=== PATIENT | female | born 1980 | race African-American/Black ===

== ENCOUNTER 2016-11-24 16:12 | Emergency (ER) | payer OTHER ==
[2016-11-24 16:29] VITALS: BP 118/69; PULSE 57; TEMP 98.4; BMI 35.3
--- NOTE | 2016-11-24 17:44 | PDOC ---
[id number] No Limitations - History of Present Illness Initial Comments: 11/24/16 18:15 The patient is a 36 year old female, , with significant past medical history of asthma who presents to the ED with back pain. Patient notes that she has been experiencing the following back pain for 3 years that she developed shortly after the of her 3rd child. She notes that the back pain radiates to the back of her legs and she also reports numbness. She states that she recently had X RAYs done that were normal. She notes that she used to take Neparcin that helped her for her back pain but reports no alleviation with Flexeril. She reports mild cp and SOB. She denies nausea, vomiting, diarrhea, constipation or abdominal pain. She denies dysuria, frequency, hesitancy or hematuria. She denies any LOC, recent trauma, or neck pain. <Karyna Doe - Last Filed: 11/24/16 19:08> <Damián Huertas - Last Filed: 12/19/16 09:54> - General Chief Complaint: Back Pain Stated Complaint: LOWER BACK PAIN Time Seen by Provider: 11/24/16 16:50 Past History <Karyna Doe - Last Filed: 11/24/16 19:08> - Past Medical History Asthma: Yes Cancer: No Cardiac Disorders: Yes (heart murmur) Diabetes: No HTN: No Seizures: No Thyroid Disease: No - Reproductive History (#): 4 Para: 3 - Psycho/Social/Smoking Cessation Hx Anxiety: No Suicidal Ideation: No Smoking Status: No Smoking History: Never smoked Have you smoked in the past 12 months: No Number of Cigarettes Smoked Daily: 0 Hx Alcohol Use: Yes (OCCASIONALLY) Drug/Substance Use Hx: No Substance Use Type: None Hx Substance Use Treatment: No <Damián Huertas - Last Filed: 12/19/16 09:54> - Past Medical History Allergies/Adverse Reactions: Allergies Allergy/AdvReac Type Severity Reaction Status Date / Time No Known Allergies Allergy Verified 11/24/16 16:29 Home Medications: Ambulatory Orders Ondansetron [Zofran *Odt*] 4 mg SL TID #30 od.tablet 01/10/16 Cyclobenzaprine HCl [Flexeril -] 10 mg PO TID #21 tablet 11/24/16 Diclofenac Sodium/Misoprostol [Arthrotec 75 mg-200 Mcg Tab] 1 each PO BID #20 tablet. 11/24/16 Pseudoephedrine HCl [Sudafed 12 Hour] 120 mg PO BID #24 tablet.er 12/15/16 Review of Systems - Review of Systems Able to Perform ROS?: Yes Comments:: 11/24/16 18:16 GENERAL/CONSTITUTIONAL: No fever or chills. No weakness. HEAD, EYES, EARS, NOSE AND THROAT: No change in vision. No ear pain or discharge. No sore throat. CARDIOVASCULAR: No chest pain or shortness of breath. RESPIRATORY: No cough, wheezing, or hemoptysis. GASTROINTESTINAL: No nausea, vomiting, diarrhea or constipation. GENITOURINARY: No dysuria, frequency, or change in urination. MUSCULOSKELETAL: +back pain. No joint or muscle swelling or pain. No neck. SKIN: No rash NEUROLOGIC: No headache, vertigo, loss of consciousness, or change in strength/ sensation. ENDOCRINE: No increased thirst. No abnormal weight change. HEMATOLOGIC/LYMPHATIC: No anemia, easy bleeding, or history of blood clots. ALLERGIC/IMMUNOLOGIC: No hives or skin allergy. <Karyna Doe - Last Filed: 11/24/16 19:08> *Physical Exam - Vital Signs Last Vital Signs Temp Pulse Resp BP Pulse Ox 98.4 F 57 L 16 118/69 97 11/24/16 16:26 11/24/16 16:26 11/24/16 16:26 11/24/16 16:26 11/24/16 16:26 - Physical Exam Comments: 11/24/16 18:16 GENERAL: Awake, alert, and fully oriented, in no acute distress HEAD: No signs of trauma EYES: PERRLA, EOMI, sclera anicteric, conjunctiva clear ENT: Auricles normal inspection, hearing grossly normal, nares patent, oropharynx clear without exudates. Moist mucosa NECK: Normal ROM, supple, no lymphadenopathy, JVD, or masses LUNGS: Breath sounds equal, clear to auscultation bilaterally. No wheezes, and no crackles HEART: Regular rate and rhythm, normal S1 and S2, no murmurs, rubs or gallops ABDOMEN: Soft, nontender, normoactive bowel sounds. No guarding, no rebound. No masses EXTREMITIES: Normal range of motion, no edema. No clubbing or cyanosis. No cords, erythema, or tenderness NEUROLOGICAL: Cranial nerves II through XII grossly intact. Normal speech, normal gait SKIN: Warm, Dry, normal turgor, no rashes or lesions noted. <Karyna Doe - Last Filed: 11/24/16 19:08> - Vital Signs Last Vital Signs Temp Pulse Resp BP Pulse Ox 98.4 F 57 L 16 118/69 97 11/24/16 16:26 11/24/16 16:26 11/24/16 16:26 11/24/16 16:26 11/24/16 16:26 <Damián Huertas - Last Filed: 12/19/16 09:54> ED Treatment Course - Medications Given in the ED: ED Medications Discontinued Medications Generic Name Dose Route Start Last Admin Trade Name Freq PRN Reason Stop Dose Admin Ibuprofen 800 mg 11/24/16 17:58 11/24/16 18:13 Motrin - PO 11/24/16 17:59 800 mg ONCE ONE Administration Oxycodone/Acetaminophen 1 combo 11/24/16 17:58 11/24/16 18:13 Percocet 5/325 - PO 11/24/16 17:59 1 combo ONCE ONE Administration <Karyna Doe - Last Filed: 11/24/16 19:08> Medical Decision Making - Medical Decision Making 11/24/16 18:15 The patient is a 36 year old female, , with significant past medical history of asthma who presents to the ED with back pain. Will order labs and imagining. Patient will be reassessed after the results are back. 11/24/16 19:08 Since my shift is over, I endorse continuation of care to Dr. Hoff the overnight attending. <Karyna Doe - Last Filed: 11/24/16 19:08> *DC/Admit/Observation/Transfer <Karyna Doe - Last Filed: 11/24/16 19:08> - Attestations Physician Attestion: 11/24/16 17:44 I, Dr. Damián Huertas, attest that this document has been prepared under my direction and personally reviewed by me in its entirety. I further attest, that it accurately reflects all work, treatment, procedures and medical decision -making performed by me. <KiyaDamián - Last Filed: 12/19/16 09:54> Diagnosis at time of Disposition: Radiculopathy of lumbar region - Discharge Dispostion Disposition: HOME Condition at time of disposition: Stable - Prescriptions Prescriptions: Diclofenac Sodium/Misoprostol [Arthrotec 75 mg-200 Mcg Tab] 1 each PO BID #20 tablet. Cyclobenzaprine HCl [Flexeril -] 10 mg PO TID #21 tablet - Referrals Referrals: Cuate Andrade [Primary Care Provider] - Call tomorrow - Patient Instructions Additional Instructions: TAKE MEDICATIONS PRESCRIBED DO NOT TAKE ANY OTHER PAIN MEDICATION WITHOUT YOUR DOCTOR'S APPROVAL AVOID PROLONG PERIODS OF TIME IN SAME POSITION DO NOT LIFT WEIGHTS ICE OR HEAT TO AREA (WHATEVER WORKS BETTER FOR YOU) CALL YOUR DOCTOR TO START PHYSICAL THERAPY SARA LAY DOWN ON EITHER SIDE, KNEES BENT, STRAIGHT SPINE, CUSHION BETWEEN YOUR KNEES RETURN IF WORSENING PAIN OR NEW SYMPTOMS LIKE INABILITY TO URINATE OR HOLD YOUR URINE
[2016-11-24] MEDS ORDERED: IBUPROFEN 400 MG TABLET (FP) PO ONE ×2 (17:58→18:07)
[2016-11-24] MEDS ORDERED: OXYCODONE/APAP 5/325MG COMBO TABLET PO ONE (17:58)
[2016-11-24] MEDS ORDERED: OXYCODONE/APAP 5/325MG COMBO TABLET ONE (18:07)
[2016-11-24 18:44] LABS: URINE APPEARANCE CLEAR; URINE BILIRUBIN NEGATIVE (NEGATIVE); URINE COLOR YELLOW; URINE GLUCOSE (UA) NEGATIVE (NEGATIVE); URINE KETONE NEGATIVE (NEGATIVE); URINE LEUK ESTERASE NEGATIVE (NEGATIVE); URINE NITRITE NEGATIVE (NEGATIVE); URINE PROTEIN NEGATIVE (NEGATIVE); URINE UROBILINOGEN NEGATIVE E.U./dl (0.2-1.0)
[2016-11-24 18:51] LABS: URINE BLOOD 1+ (NEGATIVE)
[2016-11-24 19:25] LABS: URINE MUCUS RARE; URINE RBC 3 /hpf (0-3); URINE WBC 1 /hpf (3-5)
[2016-11-24] MEDS ORDERED: CYCLOBENZAPRINE HCL 10 MG TABLET (FP) PO ONE (20:21)
[2016-11-24] MEDS ORDERED: CYCLOBENZAPRINE HCL 10 MG TABLET (FP) ONE (20:23)
--- NOTE | 2016-11-24 20:25 | PDOC ---
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/PT <Chris Zamudio - Last Filed: 11/24/16 20:22> - Vital Signs Last Vital Signs Temp Pulse Resp BP Pulse Ox 98.4 F 57 L 16 118/69 97 11/24/16 16:26 11/24/16 16:26 11/24/16 16:26 11/24/16 16:26 11/24/16 16:26 <Faustino Macias - Last Filed: 11/24/16 21:34> ED Treatment Course - ADDITIONAL ORDERS Additional order review: Laboratory Results 11/24/16 17:58 Urine Color Yellow Urine Appearance Clear Urine pH 5.0 Ur Specific Rochert 1.026 Urine Protein Negative Urine Glucose (UA) Negative Urine Ketones Negative Urine Blood 1+ H Urine Nitrite Negative Urine Bilirubin Negative Urine Urobilinogen Negative Ur Leukocyte Esterase Negative Urine RBC 3 Urine WBC 1 Ur Epithelial Cells Rare Urine Mucus Rare Urine HCG, Qual Negative - Medications Given in the ED: ED Medications Discontinued Medications Generic Name Dose Route Start Last Admin Trade Name Carrollq PRN Reason Stop Dose Admin Ibuprofen 800 mg 11/24/16 17:58 11/24/16 18:13 Motrin - PO 11/24/16 17:59 800 mg ONCE ONE Administration Oxycodone/Acetaminophen 1 combo 11/24/16 17:58 11/24/16 18:13 Percocet 5/325 - PO 11/24/16 17:59 1 combo ONCE ONE Administration <Chris Zamudio - Last Filed: 11/24/16 20:22> - ADDITIONAL ORDERS Additional order review: Laboratory Results 11/24/16 17:58 Urine Color Yellow Urine Appearance Clear Urine pH 5.0 Ur Specific Rochert 1.026 Urine Protein Negative Urine Glucose (UA) Negative Urine Ketones Negative Urine Blood 1+ H Urine Nitrite Negative Urine Bilirubin Negative Urine Urobilinogen Negative Ur Leukocyte Esterase Negative Urine RBC 3 Urine WBC 1 Ur Epithelial Cells Rare Urine Mucus Rare Urine HCG, Qual Negative - RADIOLOGY Radiograph Interpretation: 11/24/16 21:19 CT LUMBAR SPINE Impression: The lumbar vertebral bodies are well aligned. The transverse and spinous processes are intact. No focal extruded disc herniation suggested on noncontrast images. Bilateral facet joints are intact and normally aligned. No evidence of spondylolysis or spondylolisthesis. - Medications Given in the ED: ED Medications Discontinued Medications Generic Name Dose Route Start Last Admin Trade Name Edilson PRN Reason Stop Dose Admin Cyclobenzaprine HCl 10 mg 11/24/16 20:21 11/24/16 20:27 Flexeril - PO 11/24/16 20:22 10 mg ONCE ONE Administration Ibuprofen 800 mg 11/24/16 17:58 11/24/16 18:13 Motrin - PO 11/24/16 17:59 800 mg ONCE ONE Administration Oxycodone/Acetaminophen 1 combo 11/24/16 17:58 11/24/16 18:13 Percocet 5/325 - PO 11/24/16 17:59 1 combo ONCE ONE Administration <Faustino Macias - Last Filed: 11/24/16 21:34> *DC/Admit/Observation/Transfer <Chris Zamudio - Last Filed: 11/24/16 20:22> <Faustino Macias - Last Filed: 11/24/16 21:34> Diagnosis at time of Disposition: Radiculopathy of lumbar region - Discharge Dispostion Disposition: HOME Condition at time of disposition: Stable - Prescriptions Prescriptions: Diclofenac Sodium/Misoprostol [Arthrotec 75 mg-200 Mcg Tab] 1 each PO BID #20 tablet.dr Ryanbenzaprine HCl [Flexeril -] 10 mg PO TID #21 tablet - Referrals Referrals: Cuate Andrade [Primary Care Provider] - Call tomorrow - Patient Instructions Additional Instructions: TAKE MEDICATIONS PRESCRIBED DO NOT TAKE ANY OTHER PAIN MEDICATION WITHOUT YOUR DOCTOR'S APPROVAL AVOID PROLONG PERIODS OF TIME IN SAME POSITION DO NOT LIFT WEIGHTS ICE OR HEAT TO AREA (WHATEVER WORKS BETTER FOR YOU) CALL YOUR DOCTOR TO START PHYSICAL THERAPY SARA LAY DOWN ON EITHER SIDE, KNEES BENT, STRAIGHT SPINE, CUSHION BETWEEN YOUR KNEES RETURN IF WORSENING PAIN OR NEW SYMPTOMS LIKE INABILITY TO URINATE OR HOLD YOUR URINE - Post Discharge Activity
== END 2016-11-24 21:36 | disposition home or self-care (01) ==
LOC: JER 16:12 → JERFT 16:12 → JER 21:36
DX: M54.16 Radiculopathy, lumbar region (principal); R01.1 Cardiac murmur, unspecified; J45.909 Unspecified asthma, uncomplicated
CPT/HCPCS: 72131-TC; 81003; 81015; 84703; 87086; 87186; 99281-25

== ENCOUNTER 2016-12-15 15:47 | Emergency (ER) | payer OTHER ==
[2016-12-15 15:58] VITALS: BP 118/77; PULSE 89; TEMP 98.3; BMI 36.0
--- NOTE | 2016-12-15 16:09 | PDOC ---
History of Present Illness <Randall Samuels - Last Filed: 12/15/16 17:35> - General History Source: Patient, Old Records Exam Limitations: No Limitations - History of Present Illness Initial Comments: 12/15/16 17:49 The patient is a 36 year old female, with a significant past medical history of asthma and chronic lower back pain, who presents to the emergency department with cold-like symptoms including a nonproductive cough and chest congestion. The patient additionally reports a subjective fever last night. The patient denies shortness of breath or chest pain. The patient denies nausea, vomiting, diarrhea or any dysuria. 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 The patient denies any leg swelling, hemoptysis, exogenous steroid/ hormone use. Allergies: None reported. Past Surgical History: . Social History: Non smoker. Denies alcohol or drug use. PCP: Dr. Cuate Andrade ([facility]) <Stephanie Ragland - Last Filed: 12/15/16 17:50> - General Chief Complaint: Cold Symptoms Stated Complaint: COUGH Time Seen by Provider: 12/15/16 15:52 Past History - Past Medical History Asthma: Yes (CHILDHOOD) Cancer: No Cardiac Disorders: Yes (heart murmur) Diabetes: No HTN: No Seizures: No Thyroid Disease: No Other medical history: CHRONIC BACK PAIN - Reproductive History (#): 4 Para: 3 - Psycho/Social/Smoking Cessation Hx Anxiety: No Suicidal Ideation: No Smoking Status: No Smoking History: Never smoked Have you smoked in the past 12 months: No Number of Cigarettes Smoked Daily: 0 Hx Alcohol Use: Yes (OCCASIONALLY) Drug/Substance Use Hx: No Substance Use Type: None Hx Substance Use Treatment: No <Randall Samuels - Last Filed: 12/15/16 17:35> <Stephanie Ragland - Last Filed: 12/15/16 17:50> - Past Medical History Allergies/Adverse Reactions: Allergies Allergy/AdvReac Type Severity Reaction Status Date / Time No Known Allergies Allergy Verified 11/24/16 16:29 Home Medications: Ambulatory Orders Ondansetron [Zofran *Odt*] 4 mg SL TID #30 od.tablet 01/10/16 Cyclobenzaprine HCl [Flexeril -] 10 mg PO TID #21 tablet 11/24/16 Diclofenac Sodium/Misoprostol [Arthrotec 75 mg-200 Mcg Tab] 1 each PO BID #20 tablet. 11/24/16 Pseudoephedrine HCl [Sudafed 12 Hour] 120 mg PO BID #24 tablet.er 12/15/16 Review of Systems - Review of Systems Able to Perform ROS?: Yes Comments:: 12/15/16 17:49 CONSTITUTIONAL: Reported:+Subjective fever. No reported: Chills, Diaphoresis, Generalized Weakness, Malaise, Loss of Appetite HEENT: No reported: Rhinorrhea, Nasal Congestion, Throat Pain, Throat Swelling, Difficulty Swallowing, Mouth Swelling, Ear Pain, Eye Pain, Visual Changes CARDIOVASCULAR: No reported: Chest Pain, Syncope, Palpitations, Irregular Heart Rate, Lightheadedness, Peripheral Edema RESPIRATORY: Reported: +Cough, Chest Congestion. No reported: Shortness of Breath, SOB with Exertion, Orthopnea, Wheezing, Stridor, Hemoptysis GASTROINTESTINAL: No reported: Abdominal pain, Abdominal Distension, Nausea, Vomiting, Diarrhea, Constipation, Melena, Hematochezia GENITOURINARY: No reported: Dysuria, Frequency, Urgency, Hesitancy, Flank Pain, Genital Pain MUSCULOSKELETAL: No reported: Myalgia, Arthralgia, Joint Swelling, Back pain, Neck Pain SKIN: No reported: Rash, Itching, Pallor HEMATOLOGIC/IMMUNOLOGIC: No reported: Easy Bleeding, Easy Bruising, Lymphadenopathy, Frequent infections ENDOCRINE: No reported: Unexplained Weight Gain, Unexplained Weight Loss, Heat Intolerance , Cold Intolerance NEUROLOGIC: No reported: Headache, Focal Weakness, Paresthesias, Vertigo, Lightheadedness, Unsteady Gait, Seizure, Mental Status Changes, Incontinence PSYCHIATRIC: No reported: Anxiety, Depression <JuneauStephanie Bone - Last Filed: 12/15/16 17:50> *Physical Exam - Vital Signs Last Vital Signs Temp Pulse Resp BP Pulse Ox 98.3 F 89 16 118/77 100 12/15/16 15:54 12/15/16 15:54 12/15/16 15:54 12/15/16 15:54 12/15/16 15:54 <Randall Samuels - Last Filed: 12/15/16 17:35> - Vital Signs Last Vital Signs Temp Pulse Resp BP Pulse Ox 98.3 F 89 16 118/77 100 12/15/16 15:54 12/15/16 15:54 12/15/16 15:54 12/15/16 15:54 12/15/16 15:54 - Physical Exam Comments: 12/15/16 17:50 GENERAL: The patient is awake, alert, and fully oriented, nontoxic - in no acute distress. HEAD: Normocephalic, atraumatic. EYES: Extraocular movements intact, sclera anicteric, conjunctiva clear. ENT: Normal voice, moist mucous membranes. NECK: Normal range of motion, supple. LUNGS: Breath sounds equal, clear to auscultation bilaterally. No wheezes, no rhonchi, no rales. HEART: Regular rate and rhythm, without murmur, rub or gallop. ABDOMEN: Soft, nontender, normoactive bowel sounds. No guarding, no rebound. No CVA tenderness EXTREMITIES: Normal range of motion, no edema. No cords, erythema, or tenderness. Negative Homans sign. NEUROLOGICAL: No facial asymmetry. Normal speech. PSYCH: Normal mood, normal affect. SKIN: Warm, dry, normal turgor. <Stephanie Ragland - Last Filed: 12/15/16 17:50> ED Treatment Course - RADIOLOGY Radiology Studies Ordered: Category Date Time Status CHEST PA & LAT [RAD] Stat Radiology 12/15/16 16:07 Ordered <Randall Samuels - Last Filed: 12/15/16 17:35> Medical Decision Making - Medical Decision Making 12/15/16 16:07 36y F hx of asthma presents with coughing x 1 month, with subjective fever last night, cough is nonproductive but pt notes that at night she feels very congested and feels like may be she has a post nasal drip although she denies nasal congestion. there is no associated hemoptysis, leg swelling. pts exam is normal. will obtain cxr to r/o pna suspect possible viral syndrome PERC negative if xray neg will treat pt with some sudafed for sypmtomatic relief. A portion of this note was documented by scribe services under my direction. I have reviewed the details of the note, within reason, and agree with the documentation with the following case summary and management plan written by me 12/15/16 17:35 cxr negative for infiltrate will dc th etp with sudafed and pmd fu return precautions were discussed I discussed the physical exam findings, ancillary test results and final diagnoses with the patient. I answered all of the patient's questions. The patient was satisfied with the care received and felt comfortable with the discharge plan and treatment plan. The patient will call their primary care physician within 24 hours to arrange follow-up and will return to the Emergency Department with any new, persistent or worsening symptoms. <Randall Samuels - Last Filed: 12/15/16 17:35> *DC/Admit/Observation/Transfer - Discharge Dispostion Admit: No <Randall Samuels - Last Filed: 12/15/16 17:35> - Attestations Scribe Attestion: 12/15/16 16:12 Documentation prepared by Stephanie Ragland, acting as medical technologist for Randall Samuels MD. <Stephanie Ragland - Last Filed: 12/15/16 17:50> Diagnosis at time of Disposition: Cough - Discharge Dispostion Disposition: HOME Condition at time of disposition: Stable - Prescriptions Prescriptions: Pseudoephedrine HCl [Sudafed 12 Hour] 120 mg PO BID #24 tablet.er - Referrals Referrals: Cuate Andrade [Primary Care Provider] - - Patient Instructions Printed Discharge Instructions: DI for Common Cold Additional Instructions: Return to the emergency department immediately with ANY new, persistent or worsening symptoms. You MUST call and follow up with your doctor tomorrow for further evaluation of your symptoms. Results were discussed with you. Please make sure your doctor reviews the results of your emergency evaluation. If you had any xrays during your visit, it was read preliminarily by myself, a Radiologist will review it and if there are any additional findings we will call you.
== END 2016-12-15 17:45 | disposition home or self-care (01) ==
LOC: FER 15:47
DX: R05 Cough (principal); J45.909 Unspecified asthma, uncomplicated; G89.29 Other chronic pain
CPT/HCPCS: 71020-TC; 99281-25

== ENCOUNTER 2017-04-19 00:26 | Emergency (ER) | payer OTHER ==
--- NOTE | 2017-04-19 00:54 | PDOC ---
History of Present Illness - General History Source: Patient Exam Limitations: No Limitations - History of Present Illness Initial Comments: 04/19/17 02:23 36 yo F with no pmhx here with c/o epigastric pain n/v that started yesterday evening. pt states at lots of sea food yesterday, unsure if got food poisoning. no f/c today had several episodes of nonbloody, nonbilious emesis. also severe loose watery stools. no mod factors. no sick contacts. all nonbloody. pain sharp and buring. no radiation. no h/o similar episodes in the past. <Veronika Viveros - Last Filed: 04/19/17 03:08> <Rozina Lewis - Last Filed: 04/20/17 05:02> - General Stated Complaint: ABDOMINAL PAIN Time Seen by Provider: 04/19/17 00:36 Past History <Veronika Viveros - Last Filed: 04/19/17 03:08> - Past Medical History Asthma: Yes (CHILDHOOD) Cancer: No Cardiac Disorders: Yes (heart murmur) Diabetes: No HTN: No Seizures: No Thyroid Disease: No - Reproductive History (#): 4 Para: 3 - Psycho/Social/Smoking Cessation Hx Anxiety: No Suicidal Ideation: No Smoking Status: No Smoking History: Never smoked Have you smoked in the past 12 months: No Number of Cigarettes Smoked Daily: 0 Hx Alcohol Use: Yes (OCCASIONALLY) Drug/Substance Use Hx: No Substance Use Type: None Hx Substance Use Treatment: No <Rozina Lewis - Last Filed: 04/20/17 05:02> - Past Medical History Allergies/Adverse Reactions: Allergies Allergy/AdvReac Type Severity Reaction Status Date / Time No Known Allergies Allergy Verified 04/19/17 00:55 Home Medications: Ambulatory Orders Ondansetron [Zofran *Odt*] 4 mg SL TID #30 od.tablet 01/10/16 Cyclobenzaprine HCl [Flexeril -] 10 mg PO TID #21 tablet 11/24/16 Diclofenac Sodium/Misoprostol [Arthrotec 75 mg-200 Mcg Tab] 1 each PO BID #20 tablet. 11/24/16 Pseudoephedrine HCl [Sudafed 12 Hour] 120 mg PO BID #24 tablet.er 12/15/16 Review of Systems - Review of Systems Constitutional: No: Chills, Diaphoresis Respiratory: No: Cough, Orthopnea Cardiac (ROS): No: Chest Pain ABD/GI: Yes: Abd. Pain w/ defecation, Diarrhea, Nausea, Vomiting : No: Burning, Dysuria Musculoskeletal: No: Back Pain Neurological: No: Headache All Other Systems: Reviewed and Negative <Veronika Viveros - Last Filed: 04/19/17 03:08> *Physical Exam - Vital Signs Last Vital Signs Temp Pulse Resp BP Pulse Ox 98.0 F 86 18 125/70 100 04/19/17 00:57 04/19/17 00:57 04/19/17 00:57 04/19/17 00:57 04/19/17 00:57 - Physical Exam General Appearance: Yes: Nourished HEENT: positive: Normal ENT Inspection Neck: positive: Tender, Trachea midline Respiratory/Chest: positive: Lungs Clear, Normal Breath Sounds. negative: Chest Tender Cardiovascular: positive: Regular Rhythm, Regular Rate, S1, S2. negative: Edema , JVD Gastrointestinal/Abdominal: positive: Normal Bowel Sounds, Tender (epigastric ttp. no rebound no guarding. ) Musculoskeletal: positive: Normal Inspection. negative: CVA Tenderness Extremity: positive: Normal Capillary Refill, Normal Inspection Integumentary: positive: Normal Color, Warm Neurologic: positive: Fully Oriented, Alert <Veronika Viveros - Last Filed: 04/19/17 03:08> Procedures - Bedside Ultrasound Bedside Ultrasound: Gallbladder Other: see MDM for impression <Veronika Viveros - Last Filed: 04/19/17 03:08> ED Treatment Course - LABORATORY CBC & Chemistry Diagram: 04/19/17 02:23 04/19/17 02:23 <Veronika Viveros - Last Filed: 04/19/17 03:08> - LABORATORY CBC & Chemistry Diagram: 04/19/17 02:23 04/19/17 04:21 <Rozina Lewis - Last Filed: 04/20/17 05:02> Medical Decision Making - Medical Decision Making 04/19/17 02:25 36 yo F with no pmhx here with c/o severe epigastric pain n/v/d after seafood yesterday. differnetial: gastritisi cholecystisi cholelithiasis. pancreatitis. food poisonoing plan antacid, antemetics, ivf. reassess. hcg 04/19/17 03:08 focused bedside ultrasound gallbladder performed. scanned in two planes. no stones no dilation, normal CBD of 3.9mm, neg sonographic riojas's, nomral wall . no wall edema or thickening, wall measuried 1.2mm impression : normal gallbladder <Veronika Viveros - Last Filed: 04/19/17 03:08> - Medical Decision Making 04/20/17 04:58 I received patient on signout. She comes with food poisoning from raw seafood that she had eaten earlier. Pt's labs are essentially normal. T bili and LFTs are normal, pt feels better with hydration and medication and she understands that she should return if she has continued fever or nausea and vomiting, and that she ought to follow with PMD otherwise. <Rozina Lewis - Last Filed: 04/20/17 05:02> *DC/Admit/Observation/Transfer <Veronika Viveros - Last Filed: 04/19/17 03:08> - Discharge Dispostion Admit: No <Rozina Lewis - Last Filed: 04/20/17 05:02> Diagnosis at time of Disposition: Food poisoning - Discharge Dispostion Disposition: HOME Condition at time of disposition: Improved - Referrals Referrals: Cuate Andrade [Primary Care Provider] - - Patient Instructions Printed Discharge Instructions: Food Poisoning
[2017-04-19 01:01] VITALS: BP 125/70; PULSE 86; TEMP 98; BMI 35.3
[2017-04-19] MEDS ORDERED: MAG HYDROX/AL HYDROX/SIMETH 355 ML ORAL.SUSP PO ONE (02:06)
[2017-04-19] MEDS ORDERED: PANTOPRAZOLE 40 MG TABLET (FP) PO ONE (02:06)
[2017-04-19] MEDS ORDERED: ONDANSETRON 4 MG/2 ML VIAL IVPUSH ONE (02:22)
[2017-04-19] MEDS ORDERED: SODIUM CHLORIDE 0.9% 1000 ML INFUS.BAG IV ONE (02:22)
[2017-04-19] MEDS ORDERED: FAMOTIDINE 20 MG/50 ML IVPB 50 ML IVPB ONE ×2 (02:22→02:51)
[2017-04-19 02:42] LABS: BASOPHIL 0.2 % (0-2.0); EOSINOPHIL 0.1 % (0-4.5); MCH 27.8 pg (25.7-33.7); MEAN CELL VOLUME 84.3 fl (80-96); MEAN PLT VOLUME 8.6 fl (7.5-11.1); NEUTROPHILS 81.7 % (42.8-82.8); PLATELET COUNT 256 K/MM3 (134-434); RDW 14.8 % (11.6-15.6); WHITE BLOOD COUNT 15.1 K/mm3 (4.0-10.0)
[2017-04-19] MEDS ORDERED: MAG HYDROX/AL HYDROX/SIMETH 30 ML UNIT-DOSE CUP ONE (02:51)
[2017-04-19] MEDS ORDERED: ONDANSETRON 4 MG/2 ML VIAL ONE (02:51)
[2017-04-19] MEDS ORDERED: KETOROLAC TROMETHAMINE 30 MG/1 ML VIAL IVPUSH ONE (03:09)
[2017-04-19] MEDS ORDERED: KETOROLAC TROMETHAMINE 30 MG/1 ML VIAL ONE (03:23)
[2017-04-19] MEDS ORDERED: morphine CARPU-JECT 2 MG/1 ML DISP.SYRIN IVPUSH ONE (04:18)
[2017-04-19] MEDS ORDERED: METOCLOPRAMIDE HCL INJECTION 10 MG/2 ML VIAL IVPB ONE (04:19)
[2017-04-19] MEDS ORDERED: morphine CARPU-JECT 2 MG/1 ML DISP.SYRIN ONE (04:37)
[2017-04-19] MEDS ORDERED: METOCLOPRAMIDE HCL INJECTION 10 MG/2 ML VIAL ONE (04:37)
[2017-04-19] MEDS ORDERED: SODIUM CHLORIDE 0.9% 500 ML INFUS.BAG IV ONE (04:49)
[2017-04-19 05:05] LABS: ALBUMIN 3.2 g/dl (3.4-5.0); ANION GAP 9 (8-16); BILIRUBIN,TOTAL 1.1 mg/dL (0.2-1.0); CALCIUM 8.4 mg/dL (8.5-10.1); CO2 25 mmol/L (21-32); CREATININE 0.6 mg/dL (0.55-1.02); GLUCOSE,RANDOM 108 mg/dL (74-106); SGOT/AST 12 U/L (15-37); SGPT/ALT 14 U/L (12-78); TOT PROT 6.4 g/dl (6.4-8.2)
[2017-04-19 05:07] LABS: ALK PHOS 41 U/L (45-117)
== END 2017-04-19 06:33 | disposition home or self-care (01) ==
LOC: JER 00:26
PROC: 3E033GC Introduction of Other Therapeutic Substance into Peripheral Vein, Percutaneous Approach (ICD-10-PCS; principal; 2017-04-19)
PROC: 3E033NZ Introduction of Analgesics, Hypnotics, Sedatives into Peripheral Vein, Percutaneous Approach (ICD-10-PCS; 2017-04-19)
PROC: 3E0333Z Introduction of Anti-inflammatory into Peripheral Vein, Percutaneous Approach (ICD-10-PCS; 2017-04-19)
PROC: 3E033GC Introduction of Other Therapeutic Substance into Peripheral Vein, Percutaneous Approach (ICD-10-PCS; 2017-04-19)
DX: T61.8X1A Toxic effect of other seafood, accidental (unintentional), initial encounter (principal); Y92.89 Other specified places as the place of occurrence of the external cause
CPT/HCPCS: 36415; 80053; 83690; 84702; 85025; 99281-25; 99282-25

== ENCOUNTER 2017-09-18 18:58 | Emergency (ER) | payer OTHER ==
[2017-09-18 19:13] VITALS: BP 119/74; PULSE 20; TEMP 99.2; BMI 37.7
--- NOTE | 2017-09-18 20:06 | PDOC ---
History of Present Illness - General History Source: Patient Exam Limitations: No Limitations - History of Present Illness Initial Comments: 09/18/17 20:07 The patient is a 36 year old female with past medical history of heart murmur who presents to the ED with a multitude of complaints. She states that two weeks ago she began developing epigastric pain as well as left flank pain that radiates to her left groin area. Her symptoms are accompanied with some nausea but no vomiting. She states that she also noted some mucus and faint blood in her urine as well. Additionally, she complains of an upper mid back pain which she describes as stabbing and radiates to her mid sternum. She states the pain is worsened upon deep inspiration. She also complains of shortness of breath upon light exertion for the past two weeks as well. The patient denies any fevers, chills, vomiting, diarrhea, or cough. LMP was September 01. <Xochitl Wheeler - Last Filed: 09/18/17 20:07> <Jonas Warren - Last Filed: 09/19/17 00:16> - General Chief Complaint: Pain Stated Complaint: BACK,CHEST,ABD PAIN Past History <Xochitl Wheeler - Last Filed: 09/18/17 20:07> - Past Medical History Asthma: Yes (CHILDHOOD) Cancer: No Cardiac Disorders: Yes (heart murmur) COPD: No Diabetes: No HTN: No Seizures: No Thyroid Disease: No - Reproductive History (#): 4 Para: 3 - Suicide/Smoking/Psychosocial Hx Smoking Status: No Smoking History: Never smoked Have you smoked in the past 12 months: No Number of Cigarettes Smoked Daily: 0 Information on smoking cessation initiated: No Hx Alcohol Use: Yes (OCCASIONALLY) Drug/Substance Use Hx: No Substance Use Type: None Hx Substance Use Treatment: No <Jonas Warren - Last Filed: 09/19/17 00:16> - Past Medical History Allergies/Adverse Reactions: Allergies Allergy/AdvReac Type Severity Reaction Status Date / Time No Known Allergies Allergy Verified 09/18/17 18:59 Home Medications: Ambulatory Orders NK [No Known Home Medication] 04/23/17 Review of Systems - Review of Systems Able to Perform ROS?: Yes Comments:: 09/18/17 20:08 GENERAL/CONSTITUTIONAL: No fever or chills. No weakness. HEAD, EYES, EARS, NOSE AND THROAT: No change in vision. No ear pain or discharge. No sore throat. CARDIOVASCULAR: Present: chest pain, shortness of breath RESPIRATORY: Present: cough No wheezing, or hemoptysis. GASTROINTESTINAL: Present: nausea, abdominal pain No vomiting, diarrhea or constipation. GENITOURINARY: No dysuria, frequency, or change in urination. MUSCULOSKELETAL: Present: upper back pain No neck pain. SKIN: No rash NEUROLOGIC: No headache, vertigo, loss of consciousness, or change in strength/ sensation. ENDOCRINE: No increased thirst. No abnormal weight change. HEMATOLOGIC/LYMPHATIC: No anemia, easy bleeding, or history of blood clots. ALLERGIC/IMMUNOLOGIC: No hives or skin allergy. All Other Systems: Reviewed and Negative <Xochitl Wheeler - Last Filed: 09/18/17 20:07> *Physical Exam - Vital Signs Last Vital Signs Temp Pulse Resp BP Pulse Ox 99.2 F 20 L 20 119/74 100 09/18/17 18:59 09/18/17 18:59 09/18/17 18:59 09/18/17 18:59 09/18/17 18:59 - Physical Exam Comments: 09/18/17 20:10 GENERAL: Awake, alert, and fully oriented, in no acute distress, walked two flights of stairs and O2 sat remained at 100% HEAD: No signs of trauma EYES: PERRLA, EOMI, sclera anicteric, conjunctiva clear ENT: Auricles normal inspection, hearing grossly normal, nares patent, oropharynx clear without exudates. Moist mucosa NECK: Normal ROM, supple, no lymphadenopathy, JVD, or masses LUNGS: Breath sounds equal, clear to auscultation bilaterally. No wheezes, and no crackles HEART: Regular rate and rhythm, normal S1 and S2, no murmurs, rubs or gallops ABDOMEN: Soft, nontender, normoactive bowel sounds. No guarding, no rebound. No masses EXTREMITIES: Normal range of motion, no edema. No clubbing or cyanosis. No cords, erythema, or tenderness NEUROLOGICAL: Cranial nerves II through XII grossly intact. Normal speech, normal gait SKIN: Warm, Dry, normal turgor, no rashes or lesions noted. <Xochitl Wheeler - Last Filed: 09/18/17 20:07> - Vital Signs Last Vital Signs Temp Pulse Resp BP Pulse Ox 99.2 F 20 L 20 119/74 100 09/18/17 18:59 09/18/17 18:59 09/18/17 18:59 09/18/17 18:59 09/18/17 18:59 <Jonas Warren - Last Filed: 09/19/17 00:16> Medical Decision Making - Medical Decision Making 09/19/17 00:10 complaints to me are primarily: 1. KITCHEN x 2 weeks In ED, clear lungs. Nl sat. I had patient climb 2 flights of stairs which results in increased heart rate, nl sat, and clear lungs. 2. Alopecia, patchy, hx of hashimotos, not on meds, can fu with endocrine 3. Frequent sweating. ?Hyperthyroidism. Not cw hx of weight gain. To fu with endocrine for fu thyroid check <Jonas Warren - Last Filed: 09/19/17 00:16> *DC/Admit/Observation/Transfer - Attestations Scribe Attestion: 09/18/17 20:11 Documentation prepared by Xochitl Wheeler, acting as medical office scheduler for Jonas Warren MD. 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
== END 2017-09-18 19:44 | disposition home or self-care (01) ==
LOC: FER 18:58
DX: E03.8 Other specified hypothyroidism (principal); R01.1 Cardiac murmur, unspecified
CPT/HCPCS: 99283-25

== ENCOUNTER 2018-03-17 17:15 | Emergency (ER) | payer OTHER ==
--- NOTE | 2018-03-17 17:31 | PDOC ---
Rapid Medical Evaluation Time Seen by Provider: 03/17/18 17:27 Medical Evaluation: Allergies Allergy/AdvReac Type Severity Reaction Status Date / Time No Known Allergies Allergy Verified 09/18/17 18:59 03/17/18 17:27 I have performed a brief in-person evaluation of the patient. The patient presents with a chief complaint of : chest pain and shortness x 3 days intermittently. now states with pain , pressure sensation getting worse with some numbness in left arm. Denies nausea or dizziness Pertinent physical exam findings. NAD lungs clear bilaterally heart s1s2 non tender abdomen, + bowel sounds I have ordered the following ekg, labs ordered This patient will proceed to the ED for further evaluation.
[2018-03-17 17:36] VITALS: BMI 37.8
--- NOTE | 2018-03-17 17:53 | PDOC ---
History of Present Illness - General Chief Complaint: Chest Pain Stated Complaint: CHEST PAIN Time Seen by Provider: 03/17/18 17:27 - History of Present Illness Initial Comments: 03/17/18 18:01 Ms. Price is a 37 yo female w/ pmh of mild asthma who presents for evaluation of 2 days of left sided chest pain with left arm numbness. She further reports she has had coinciding chest pressure. Denies any trauma, associated symptoms, prior episodes, or family history. The patient denies shortness of breath, headache and dizziness. Denies fever, chills, nausea, vomit, diarrhea and constipation. Denies dysuria, frequency, urgency and hematuria. Allergies: NKDA Past History - Past Medical History Allergies/Adverse Reactions: Allergies Allergy/AdvReac Type Severity Reaction Status Date / Time No Known Allergies Allergy Verified 03/17/18 17:29 Home Medications: Ambulatory Orders NK [No Known Home Medication] 04/23/17 Asthma: Yes (CHILDHOOD) Cancer: No Cardiac Disorders: Yes (heart murmur) COPD: No Diabetes: No HTN: No Seizures: No Thyroid Disease: No - Reproductive History (#): 4 Para: 3 - Suicide/Smoking/Psychosocial Hx Smoking Status: No Smoking History: Never smoked Have you smoked in the past 12 months: No Number of Cigarettes Smoked Daily: 0 Information on smoking cessation initiated: No Hx Alcohol Use: No (Socially) Drug/Substance Use Hx: No Substance Use Type: Alcohol Hx Substance Use Treatment: No Review of Systems - Review of Systems Comments:: 03/17/18 18:09 GENERAL/CONSTITUTIONAL: No fever or chills. No weakness. HEAD, EYES, EARS, NOSE AND THROAT: No change in vision. No ear pain or discharge. No sore throat. CARDIOVASCULAR: +Chest pain as described w/out shortness of breath. RESPIRATORY: No cough, wheezing, or hemoptysis. GASTROINTESTINAL: No nausea, vomiting, diarrhea or constipation. GENITOURINARY: No dysuria, frequency, or change in urination. MUSCULOSKELETAL: +Left arm parasthesias. No joint or muscle swelling or pain. No neck or back pain. SKIN: No rash NEUROLOGIC: No headache, vertigo, loss of consciousness, or change in strength/ sensation. ENDOCRINE: No increased thirst. No abnormal weight change HEMATOLOGIC/LYMPHATIC: No anemia, easy bleeding, or history of blood clots. ALLERGIC/IMMUNOLOGIC: No hives or skin allergy. *Physical Exam - Vital Signs Last Vital Signs Temp Pulse Resp BP Pulse Ox 98.7 F 74 18 107/79 100 03/17/18 17:29 03/17/18 17:29 03/17/18 17:29 03/17/18 17:29 03/17/18 17:29 - Physical Exam Comments: 03/17/18 18:13 GENERAL: Awake, alert, and fully oriented, in no acute distress HEAD: No signs of trauma, normocephalic, atraumatic EYES: PERRLA, EOMI, sclera anicteric, conjunctiva clear ENT: Auricles normal inspection, hearing grossly normal, nares patent, oropharynx clear without exudates. Moist mucosa NECK: Normal ROM, supple, no lymphadenopathy, JVD, or masses LUNGS: No distress, speaks full sentences, clear to auscultation bilaterally HEART: Regular rate and rhythm, normal S1 and S2, no murmurs, rubs or gallops, peripheral pulses normal and equal bilaterally. ABDOMEN: Soft, nontender, normoactive bowel sounds. No guarding, no rebound. No masses EXTREMITIES: Normal inspection, Normal range of motion, no edema. No clubbing or cyanosis. NEUROLOGICAL: Cranial nerves II through XII grossly intact. Normal speech, normal gait, no focal sensorimotor deficits SKIN: Warm, Dry, normal turgor, no rashes or lesions noted. ED Treatment Course - LABORATORY CBC & Chemistry Diagram: 03/17/18 18:00 03/17/18 18:00 Medical Decision Making - Medical Decision Making 03/17/18 20:36 Ms. Price is a 37 yo female w/ pmh as described who presents for evaluation of chest/shoulder pain and tingling as described. Patient cardiac and PE rule- out workup performed. Labs grossly unconcerning as below. Chest CT negative for acute process. EKG normal. Patient reporting generalized relief from symptoms. No concern for acute process at this time. Discharging patient to home with cardiac follow-up and instructions to return for return of symptoms. Laboratory Results - last 24 hr 03/17/18 03/17/18 03/17/18 18:00 18:00 18:00 WBC 8.9 D RBC 4.28 Hgb 12.0 Hct 36.3 MCV 84.8 MCH 28.1 MCHC 33.1 RDW 14.0 Plt Count 309 D MPV 8.0 Neutrophils % 50.9 D Lymphocytes % 36.6 D Monocytes % 8.8 Eosinophils % 3.0 D Basophils % 0.7 D Nucleated RBC % 0 Sodium 138 Potassium 4.0 Chloride 101 Carbon Dioxide 29 Anion Gap 8 BUN 11 Creatinine 0.7 Creat Clearance w eGFR > 60 Random Glucose 83 Calcium 9.5 Total Bilirubin 0.7 D AST 15 ALT 17 Alkaline Phosphatase 48 Creatine Kinase 197 H Creatine Kinase Index 0.4 CK-MB (CK-2) 0.98 Troponin I < 0.02 Total Protein 7.6 Albumin 3.8 Urine Color Straw Urine Appearance Clear Urine pH 7.0 D Ur Specific [place] 1.006 Urine Protein Negative Urine Glucose (UA) Negative Urine Ketones Negative Urine Blood 1+ H Urine Nitrite Negative Urine Bilirubin Negative Urine Urobilinogen Negative Ur Leukocyte Esterase Negative Urine WBC (Auto) 1 Urine RBC (Auto) 2 Ur Epithelial Cells Rare Urine HCG, Qual Negative *DC/Admit/Observation/Transfer Diagnosis at time of Disposition: Chest pain Qualifiers: Chest pain type: unspecified Qualified Code(s): R07.9 - Chest pain, unspecified - Discharge Dispostion Disposition: HOME - Referrals Referrals: Neyda Randle MD [Primary Care Provider] - Helder Pandey MD [Staff Physician] - - Patient Instructions Printed Discharge Instructions: DI for Atypical Chest Pain Additional Instructions: Please follow-up with cardiology as discussed. Return to ER if any return of tingling, pain, fever, chills, or other concerning symptoms. We hope you feel better soon. - Post Discharge Activity
[2018-03-17] MEDS ORDERED: ASPIRIN 325 MG TABLET PO ONE (17:59)
[2018-03-17] MEDS ORDERED: ASPIRIN 325 MG TABLET ONE (18:10)
--- NOTE | 2018-03-17 18:21 | PDOC ---
Attending Attestation - HPI HPI: 03/17/18 19:29 The patient is a 37 year old female with past medical history of asthma presents to the emergency department with left sided chest pain for the past 2 days. The patient reports history of intermittent chest pain but states she ignores it, last episode after drinking a beer, states the chest felt inflamed with a rattle sensation and sob. The patient reports left chest pain associated with left arm numbness. The patient reports associated symptoms of sob with difficulty catching breath, and congestion. 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 The patient reports history of cough, secondary to bilateral lump palpable around the throat. Denies fever, chills, or headache. Denies nausea, vomiting or diaphoresis. Denies diarrhea or constipation. Denies dysuria, hematuria, urgency or frequency to urinate. Allergies: NKDA Social history: None reported Surgical history: None reported PCP: Dr. Neyda Randle - Medical Decision Making 03/18/18 01:50 Documentation prepared by Kristal Oquendo, acting as medical assistant prn for Corin Breen MD. <Kristal Oquendo - Last Filed: 03/18/18 01:49> - Resident Resident Name: Donn Banda - ED Attending Attestation I have performed the following: I have examined & evaluated the patient, The case was reviewed & discussed with the resident, I agree w/resident's findings & plan, Exceptions are as noted - Physicial Exam PE: GENERAL: Awake, alert, and fully oriented, in no acute distress HEAD: No signs of trauma EYES: PERRLA, EOMI, sclera anicteric, conjunctiva clear ENT: Auricles normal inspection, hearing grossly normal, nares patent, oropharynx clear without exudates. Moist mucosa NECK: Normal ROM, supple, no lymphadenopathy, JVD, or masses LUNGS: Breath sounds equal, clear to auscultation bilaterally. No wheezes, and no crackles. Mild tachypnea, +pursed lip breathing. HEART: Regular rate and rhythm, normal S1 and S2, no murmurs, rubs or gallops ABDOMEN: Soft, nontender, normoactive bowel sounds. No guarding, no rebound. No masses EXTREMITIES: Normal range of motion, no edema. No clubbing or cyanosis. No cords, erythema, or tenderness NEUROLOGICAL: Cranial nerves II through XII grossly intact. Normal speech, normal gait SKIN: Warm, Dry, normal turgor, no rashes or lesions noted. - Medical Decision Making 03/17/18 18:45 Pt with SOB on exam, tachypnea, pursed lip breathing. Lungs are clear. Will obtain CTA r/o PE. <Corin Breen - Last Filed: 03/18/18 01:54>
[2018-03-17 18:26] LABS: BASO % 0.7 % (0-2.0); HEMATOCRIT 36.3 % (32.4-45.2); LYMPH % 36.6 % (8-40); MCH 28.1 pg (25.7-33.7); MCHC 33.1 g/dl (32.0-36.0); MEAN CELL VOLUME 84.8 fl (80-96); MONO % 8.8 % (3.8-10.2); NEUT % 50.9 % (42.8-82.8); PLATELET COUNT 309 K/MM3 (134-434); RBC 4.28 M/mm3 (3.60-5.2); WHITE BLOOD COUNT 8.9 K/mm3 (4.0-10.0)
[2018-03-17 18:32] LABS: HCG,QUALITATIVE URINE NEGATIVE; URINE APPEARANCE CLEAR; URINE BILIRUBIN NEGATIVE (<2.0 mg/dL); URINE COLOR STRAW; URINE GLUCOSE (UA) NEGATIVE (NEGATIVE); URINE KETONE NEGATIVE (NEGATIVE); URINE LEUK ESTERASE NEGATIVE (NEGATIVE); URINE NITRITE NEGATIVE (NEGATIVE); URINE PROTEIN NEGATIVE (NEGATIVE); URINE UROBILINOGEN NEGATIVE mg/dL (0.2-1.0)
[2018-03-17 18:43] LABS: EPI CELLS RARE /HPF (FEW)
[2018-03-17 18:54] LABS: ALBUMIN 3.8 g/dl (3.4-5.0); ANION GAP 8 (8-16); BILIRUBIN,TOTAL 0.7 mg/dL (0.2-1.0); BLOOD UREA NITROGEN 11 mg/dL (7-18); CALCIUM 9.5 mg/dL (8.5-10.1); CHLORIDE 101 mmol/L (98-107); CO2 29 mmol/L (21-32); CREATININE 0.7 mg/dL (0.55-1.02); GLUCOSE,RANDOM 83 mg/dL (74-106); SGOT/AST 15 U/L (15-37); SGPT/ALT 17 U/L (12-78); SODIUM 138 mmol/L (136-145); TOT PROT 7.6 g/dl (6.4-8.2)
[2018-03-17 18:56] LABS: ALK PHOS 48 U/L (45-117)
[2018-03-17 20:58] VITALS: BP 110/60; PULSE 68; TEMP 98.1
--- NOTE | 2018-03-18 13:28 | EKG ---
Test Reason : Blood Pressure : / mmHG Vent. Rate : 070 BPM Atrial Rate : 070 BPM P-R Int : 178 ms QRS Dur : 082 ms QT Int : 404 ms P-R-T Axes : 040 036 022 degrees QTc Int : 436 ms NORMAL SINUS RHYTHM NORMAL ECG WHEN COMPARED WITH ECG OF 15-AUG-2013 13:56, QT HAS LENGTHENED Confirmed by KEVIN MCNAMARA MD ([id number]) on 03/18/2018 1:27:49 PM Referred By: Confirmed By:KEVIN MCNAMARA MD
== END 2018-03-17 20:59 | disposition home or self-care (01) ==
LOC: JER 17:15
DX: R07.9 Chest pain, unspecified (principal); R07.89 Other chest pain; R01.1 Cardiac murmur, unspecified
CPT/HCPCS: 36415; 71275-TC; 80053; 81003; 81015; 82550; 82553; 84484; 84703; 85025; 87086; 87186; 93005; 93010; 99285-25

== ENCOUNTER 2018-11-19 07:05 | Day surgery (SDC) | payer OTHER ==
[2018-11-12 09:53] VITALS: BMI 39.4
[2018-11-19] MEDS ORDERED: LIDOCAINE HCL 2% (20ML MULTI-DOSE VIAL) NR ONE (08:25)
[2018-11-19] MEDS ORDERED: ONDANSETRON 4 MG/2 ML VIAL ONE (08:29)
[2018-11-19] MEDS ORDERED: PROPOFOL 20 ML ONE ×2 (08:29)
[2018-11-19] MEDS ORDERED: LIDOCAINE HCL 2% 100 MG/5 ML DISP.SYRIN ONE (08:29)
[2018-11-19] MEDS ORDERED: DEXAMETHASONE SOD PHOSPHATE 4 MG/1 ML VIAL ONE (08:29)
[2018-11-19] MEDS ORDERED: ceFAZolin SODIUM 1 GM VIAL ONE (08:29)
[2018-11-19] MEDS ORDERED: MIDAZOLAM HCL 2 MG/2 ML SINGLE DOSE VIAL ONE (08:29)
[2018-11-19] MEDS ORDERED: KETOROLAC TROMETHAMINE 30 MG/1 ML VIAL ONE (08:29)
[2018-11-19] MEDS ORDERED: LIDOCAINE HCL 2% (50ML VIAL) INF ONE ×2 (08:52→08:55)
[2018-11-19] MEDS ORDERED: ONDANSETRON 4 MG/2 ML VIAL IVPUSH PRN (09:13)
[2018-11-19] MEDS ORDERED: oxyCODONE HCL 5 MG TABLET PO PRN ×2 (09:13)
[2018-11-19] MEDS ORDERED: PROMETHAZINE HCL 25 MG/1 ML VIAL IVPUSH PRN (09:13)
[2018-11-19 09:43] VITALS: TEMP 98.1
[2018-11-19 10:30] VITALS: BP 106/66; PULSE 72
--- NOTE | 2018-11-19 13:44 | OP ---
DATE OF OPERATION: 11/19/2018 SURGEON: Sera Price MD ORDER BUILDER LOADER: STEVE Morin PREOPERATIVE DIAGNOSIS: Left carpal tunnel syndrome. POSTOPERATIVE DIAGNOSIS: Left carpal tunnel syndrome. PROCEDURE: [place] [address]. FINDINGS: Thickened transverse carpal ligament with impingement upon median nerve. PROCEDURE: Under sterile conditions, right the upper extremity was prepped and draped in a sterile fashion. Incision was made along the longitudinal portion of the carpal tunnel. A longitudinal incision was made along the proximal portion of the palm, following the palm crease. This was taken down to the transcarpal ligament, which was released initially with scalpel and then extended proximally and distally using blunt tenotomy scissors. The median nerve was identified and completely released from impingement by the transcarpal ligament. The wound was then irrigated with copious amounts of irrigation. Skin was closed with 5-0 nylon in single interrupted sutures. The PA listed above was present and assisted at surgery. Their presence was absolutely medically necessary for the completion of the procedure. They helped hold the arthroscopy, pass instruments (and implants when indicated) and the procedure could not have been completed without their assistance. SERA ANDRES M.D. [id number]
== END 2018-11-19 11:10 | disposition home or self-care (01) ==
LOC: FASU 07:05
PROVIDERS: ATTEND Orthopaedic Surgery
PROC: 01N50ZZ Release Median Nerve, Open Approach (ICD-10-PCS; principal; 2018-11-19 08:52)
DX: G56.02 Carpal tunnel syndrome, left upper limb (principal)
CPT/HCPCS: 84703

== ENCOUNTER 2019-08-25 13:18 | Emergency (ER) | payer OTHER ==
[2019-08-25 13:29] VITALS: BP 118/61; PULSE 77; TEMP 98; BMI 38.9
--- NOTE | 2019-08-25 14:14 | PDOC ---
History of Present Illness - General Chief Complaint: Injury Stated Complaint: RT HAND MIDDLE FINGER INJURY Time Seen by Provider: 08/25/19 13:29 - History of Present Illness Initial Comments: 08/25/19 14:08 CHIEF COMPLAINT: finger pain HISTORY OF PRESENT ILLNESS: 38 yo F presents to [facility] with pain to R third finger. Patient states a toy fell on her hand two days ago and the pain to her finger has not subsided. 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 Patient has not taken any medications to relieve her pain. No recent travel or sick contacts. PAST MEDICAL HISTORY: Denies past medical history FAMILY HISTORY: Denies SOCIAL HISTORY:Denies tobacco, alcohol, illicit drug use. SURGICAL HISTORY: Denies ALLERGIES: No known drug allergies REVIEW OF SYSTEMS General/Constitutional: Denies fever or chills. Denies weakness, weight change. HEENT: Denies change in vision. Denies ear pain or discharge. Denies sore throat. Cardiovascular: Denies chest pain or shortness of breath. Respiratory: Denies cough, wheezing, or hemoptysis. Gastrointestinal: Denies nausea, vomiting, diarrhea or constipation. Denies rectal bleeding. Genitourinary: Denies dysuria, frequency, or change in urination. Musculoskeletal: R 3rd finger pain. Skin and breasts: Denies rash or easy bruising. Neurologic: Denies headache, vertigo, loss of consciousness, or loss of sensation. Psychiatric: Denies depression or anxiety. PHYSICAL EXAM General Appearance: Well-appearing, appropriately dressed. No apparent distress , no intoxication. HEENT: EOMI, PERRLA, normal ENT inspection, normal voice, TMs normal, pharynx normal. No conjunctival pallor. No photophobia, scleral icterus. Neck: Supple. Trachea midline. No tenderness, rigidity, carotid bruit, stridor , lymphadenopathy, or thyromegaly. Respiratory/Chest: Lungs CTAB. No shortness of breath, chest tenderness, respiratory distress, accessory muscle use. No crackles, rales, rhonchi, stridor , wheezing, dullness Cardiovascular: RRR. S1, S2. No JVD, murmur, bradycardia, tachycardia. Vascular Pulses: Dorsalis-Pedis (R): 2+, Dorsalis-Pedis (L): 2+ Gastrointestinal/Abdominal: Normal bowel sounds. Abdomen soft, non-distended. No tenderness or rebound tenderness. No organomegaly, pulsatile mass, guarding , hernia, hepatomegaly, splenomegaly. Lymphatic: No adenopathy, tenderness. Musculoskeletal/Extremities: Normal inspection. FROM of all extremities, normal capillary refill. Pelvis Stable. No CVA tenderness. No tenderness to extremities, pedal edema, swelling, erythema or deformity. Integumentary: Appropriate color, dry, warm. No cyanosis, erythema, jaundice or rash Neurologic: counter attendant II-XII intact. Fully oriented, alert. Appropriate mood/affect. Motor strength 5/5. No appreciable EOM palsy, facial droop or sensory deficit. Past History - Past Medical History Allergies/Adverse Reactions: Allergies Allergy/AdvReac Type Severity Reaction Status Date / Time No Known Allergies Allergy Verified 08/25/19 13:29 Home Medications: Ambulatory Orders Albuterol Sulfate Inhaler - [Ventolin Hfa Inhaler -] 1 puff IH HS 11/12/18 Gabapentin 300 mg PO PRN PRN 11/12/18 Cyclobenzaprine HCl [Flexeril 10 mg] 10 mg PO BID PRN 11/19/18 Ibuprofen 600 mg PO TID #30 tablet 08/25/19 Asthma: Yes Cancer: No Cardiac Disorders: Yes (heart murmur QUESTIONABLE) CVA: No COPD: No DVT: No Dementia: No Diabetes: No GI Disorders: No Disorders: No HTN: No Hypercholesterolemia: No Liver Disease: No Seizures: No Thyroid Disease: No Other medical history: SLEEP APNEA - Surgical History Abdominal Surgery: No Appendectomy: No Cardiac Surgery: No Cholecystectomy: No Lung Surgery: No Neurologic Surgery: No Orthopedic Surgery: No - Reproductive History (#): 4 Para: 3 - Immunization History Immunization Up to Date: Yes - Psycho Social/Smoking Cessation Hx Smoking Status: No Smoking History: Never smoked Have you smoked in the past 12 months: No Number of Cigarettes Smoked Daily: 0 Hx Alcohol Use: Yes (SOCIAL) Drug/Substance Use Hx: No Substance Use Type: Alcohol Hx Substance Use Treatment: No *Physical Exam - Vital Signs Last Vital Signs Temp Pulse Resp BP Pulse Ox 98 F 77 18 118/61 99 08/25/19 13:26 08/25/19 13:26 08/25/19 13:26 08/25/19 13:26 08/25/19 13:26 ED Treatment Course - RADIOLOGY Radiology Studies Ordered: Category Date Time Status HAND- RIGHT [RAD] Stat Radiology 08/25/19 13:29 Taken Medical Decision Making - Medical Decision Making 08/25/19 14:10 : 38 yo F presents to [facility] with pain to R third finger. -hand x-ray x-ray negative. motring RTC for pain control. f/u with hand if symptoms persist. Discharge - Discharge Information Problems reviewed: Yes Clinical Impression/Diagnosis: Finger injury Qualifiers: Encounter type: initial encounter Laterality: right Qualified Code(s): S69.91XA - Unspecified injury of right wrist, hand and finger(s), initial encounter Condition: Stable - Admission No - Additional Discharge Information Prescriptions: Ibuprofen 600 mg PO TID #30 tablet - Follow up/Referral Referrals: Neyda Randle MD [Primary Care Provider] - Luis Daniel Weller MD [Staff Physician] - - Patient Discharge Instructions Additional Instructions: The preliminary read on your x-ray was negative for fracture or dislocation today. Please take medication as prescribed use RICE (rest, ice, compress, and elevate) therapy for the next 2-3 days. If your symptoms persist or worsen, please follow up with the hand specialist; a referral has been provided. - Post Discharge Activity Work/Back to School Note: Back to Work
== END 2019-08-25 14:18 | disposition home or self-care (01) ==
LOC: JERFT 13:18
DX: S69.81XA Other specified injuries of right wrist, hand and finger(s), initial encounter (principal); W22.8XXA Striking against or struck by other objects, initial encounter; Y93.89 Activity, other specified; Y92.89 Other specified places as the place of occurrence of the external cause; Y99.8 Other external cause status; J45.909 Unspecified asthma, uncomplicated; G47.39 Other sleep apnea
CPT/HCPCS: 73130-TC-RT-FY; 99281-25

== ENCOUNTER 2019-11-20 01:16 | Emergency (ER) | payer OTHER ==
[2019-11-20 01:42] VITALS: TEMP 97.9; BMI 39.4
--- NOTE | 2019-11-20 01:44 | PDOC ---
History of Present Illness - General Chief Complaint: Chest Pain Stated Complaint: JAW PAIN,CHEST PAIN Time Seen by Provider: 11/20/19 01:43 History Source: Patient - History of Present Illness Initial Comments: 11/20/19 01:57 The patient is a 39 year old female with a PMHx of Asthma who presents with chest pain. Pain started approximately one half hour prior to presentation and was L sided, pressure like and lasted for 58 seconds and she also felt B/L calf tenderness. Associated shortness of breath, no lightheadedness or palpitations. No known family cardiac history. Endorses KITCHEN which she attributes to her asthma. Patient also reports a two day h/o intermittent jaw numbness. Past History - Past Medical History Allergies/Adverse Reactions: Allergies Allergy/AdvReac Type Severity Reaction Status Date / Time No Known Allergies Allergy Verified 11/20/19 01:40 Home Medications: Ambulatory Orders Albuterol Sulfate Inhaler - [Ventolin Hfa Inhaler -] 1 puff IH HS 11/12/18 Gabapentin 300 mg PO PRN PRN 11/12/18 Cyclobenzaprine HCl [Flexeril 10 mg] 10 mg PO BID PRN 11/19/18 Ibuprofen 600 mg PO TID #30 tablet 08/25/19 Asthma: Yes Cancer: No Cardiac Disorders: Yes (heart murmur QUESTIONABLE) CVA: No COPD: No DVT: No Dementia: No Diabetes: No GI Disorders: No Disorders: No HTN: No Hypercholesterolemia: No Liver Disease: No Seizures: No Thyroid Disease: No - Surgical History Abdominal Surgery: No Appendectomy: No Cardiac Surgery: No Cholecystectomy: No Lung Surgery: No Neurologic Surgery: No Orthopedic Surgery: No - Reproductive History (#): 4 Para: 3 - Immunization History Immunization Up to Date: Yes - Psycho Social/Smoking Cessation Hx Smoking Status: No Smoking History: Never smoked Have you smoked in the past 12 months: No Number of Cigarettes Smoked Daily: 0 Information on smoking cessation initiated: No Hx Alcohol Use: No Drug/Substance Use Hx: No Substance Use Type: Alcohol Hx Substance Use Treatment: No Review of Systems - Review of Systems Constitutional: No: Chills, Fever HEENTM: No: Blurred Vision, Double Vision Respiratory: Yes: Shortness of Breath. No: Cough Cardiac (ROS): Yes: Chest Pain. No: Lightheadedness, Palpitations ABD/GI: No: Constipated, Diarrhea, Nausea, Vomiting *Physical Exam - Vital Signs Last Vital Signs Temp Pulse Resp BP Pulse Ox 97.9 F 91 H 20 110/65 99 11/20/19 01:40 11/20/19 01:40 11/20/19 01:40 11/20/19 01:40 11/20/19 01:40 - Physical Exam General Appearance: Yes: Nourished, Obese HEENT: positive: Normal Voice, Hearing Grossly Normal, Other (L facial hyperpigmentation) Neck: positive: Trachea midline, Supple Respiratory/Chest: positive: Lungs Clear, Normal Breath Sounds Cardiovascular: positive: S1, S2. 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 Will r/o ACS. Consider trigemenal neuralgia. EKG w/o ischemic change as documented in EKG section of EMR 11/20/19 04:30 Labs including Troponin unremarkable Patient symptomatically improved, requesting D/C home Will d/c home with instruction to f/u with PMD for further evaluation of jaw pain. Discharge - Discharge Information Problems reviewed: Yes Clinical Impression/Diagnosis: Chest pain Condition: Good Disposition: HOME - Admission No - Follow up/Referral Referrals: Neyda Randle MD [Primary Care Provider] - - Patient Discharge Instructions Patient Printed Discharge Instructions: DI for Atypical Chest Pain Additional Instructions: Please make a follow-up appointment with your primary care doctor in the next 3 days. Your care is not complete until you are evaluated by your primary care doctor. You can take Tylenol (650 mg) alternating with Motrin (400 mg) every 6 hours for pain. Return to the Emergency Department for any new/worsening/concerning symptoms. - Post Discharge Activity
--- NOTE | 2019-11-20 01:50 | PDOC ---
Attending Attestation - Resident Resident Name: Nichol Appiah - ED Attending Attestation I have performed the following: I have examined & evaluated the patient, The case was reviewed & discussed with the resident, I agree w/resident's findings & plan - HPI HPI: 11/21/19 00:10 The patient is a 39 year old female with a PMHx of Asthma who presents with chest pain. Pain started approximately one half hour prior to presentation and was L sided, pressure like and lasted for 58 seconds and she also felt B/L calf tenderness. Pain is worse when she lays down; improved when she gets up. Associated shortness of breath, no lightheadedness or palpitations. No known family cardiac history. Endorses KITCHEN which she attributes to her asthma. Patient also reports a two day h/o intermittent jaw numbness. 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 heart normmal Pt has minimal MSCP; no rubs and no murnmurs Lungs normal no pitting edema of legs abd soft NT ND +obese nerup inract - Medical Decision Making 11/21/19 00:12 Pt treated in the ER and she feels better; labs normal and she is stable for discharge home EKG NSR vitals stable
[2019-11-20] MEDS ORDERED: ASPIRIN 81 MG CHEWABLE TABLETS PO ONE (02:00)
[2019-11-20] MEDS ORDERED: ASPIRIN 81 MG CHEWABLE TABLETS ONE (02:15)
[2019-11-20 02:29] LABS: EOS % 4.6 % (0-4.5); HEMATOCRIT 32.6 % (32.4-45.2); HEMOGLOBIN 10.6 GM/dL (10.7-15.3); LYMPH % 40.2 % (8-40); MCH 27.3 pg (25.7-33.7); MCHC 32.4 g/dl (32.0-36.0); MEAN CELL VOLUME 84.2 fl (80-96); MEAN PLT VOLUME 8.3 fl (7.5-11.1); NEUT % 45.2 % (42.8-82.8); PLATELET COUNT 316 K/MM3 (134-434); RBC 3.87 M/mm3 (3.60-5.2); RDW 14.6 % (11.6-15.6); WHITE BLOOD COUNT 8.9 K/mm3 (4.0-10.0)
[2019-11-20 02:42] LABS: INR 1.05 (0.83-1.09); PROTHROMBIN TIME (PATIENT) 12.4 SEC (9.7-13.0)
[2019-11-20 02:45] LABS: ACTIVATED PTT 37.3 SECONDS (25.2-36.5)
[2019-11-20 02:58] LABS: ALBUMIN 3.2 g/dl (3.4-5.0); BILIRUBIN,TOTAL 0.4 mg/dL (0.2-1); BLOOD UREA NITROGEN 13.6 mg/dL (7-18); CALCIUM 8.7 mg/dL (8.5-10.1); CREATININE 0.7 mg/dL (0.55-1.3); MAGNESIUM 1.9 mg/dL (1.8-2.4); POTASSIUM 3.6 mmol/L (3.5-5.1); TOT PROT 6.5 g/dl (6.4-8.2)
[2019-11-20] MEDS ORDERED: KETOROLAC TROMETHAMINE 30 MG/1 ML VIAL ONE (03:24)
[2019-11-20 03:28] VITALS: BP 112/63; PULSE 88
[2019-11-20] MEDS ORDERED: KETOROLAC TROMETHAMINE 30 MG/1 ML VIAL IVPUSH ONE (03:50)
--- NOTE | 2019-11-20 13:58 | EKG ---
Test Reason : Blood Pressure : / mmHG Vent. Rate : 087 BPM Atrial Rate : 087 BPM P-R Int : 172 ms QRS Dur : 082 ms QT Int : 380 ms P-R-T Axes : 062 056 040 degrees QTc Int : 457 ms NORMAL SINUS RHYTHM LEFT ATRIAL ENLARGEMENT NONSPECIFIC ST ABNORMALITY BORDERLINE ECG Confirmed by MD WILLIS, VERONICA ([id number]) on 11/20/2019 1:58:18 PM Referred By: Confirmed By:VERONICA PEDRO MD
== END 2019-11-20 03:56 | disposition home or self-care (01) ==
LOC: JER 01:16
PROC: 3E0333Z Introduction of Anti-inflammatory into Peripheral Vein, Percutaneous Approach (ICD-10-PCS; principal; 2019-11-20)
DX: R07.9 Chest pain, unspecified (principal); R68.84 Jaw pain
CPT/HCPCS: 36415; 71045-TC-FY; 80053; 82550; 82553; 83735; 84484; 84703; 85025; 85610; 85730; 93005; 93010; 99284-25

== ENCOUNTER 2022-08-01 11:15 | Inpatient (IN) | payer OTHER ==
[2022-08-01 11:47] VITALS: BMI 40.4
[2022-08-01] MEDS ORDERED: ALBUTEROL SO4 2.5/IPRATROPIUM 0.5 INH SOL 3 ML VIAL.NEB. NEB ONE (12:03)
[2022-08-01] MEDS ORDERED: DEXAMETHASONE SOD PHOSPHATE 10 MG/1 ML VIAL IVPUSH ONE (12:49)
[2022-08-01] MEDS ORDERED: ALBUTEROL SO4 0.083% IH SOL 2.5 MG/3 ML VIAL.NEB. NEB ONE ×4 (12:49→15:34)
[2022-08-01] MEDS ORDERED: DEXAMETHASONE SOD PHOSPHATE 10 MG/1 ML VIAL ONE (12:54)
[2022-08-01 13:03] LABS: BASO % 0.6 % (0-2.0); EOS % 4.4 % (0-4.5); HEMATOCRIT 34.5 % (32.4-45.2); HEMOGLOBIN 11.5 GM/dL (10.7-15.3); LYMPH % 29.1 % (8-40); MCH 28.3 pg (25.7-33.7); MCHC 33.3 g/dl (32.0-36.0); MEAN CELL VOLUME 84.9 fl (80-96); MEAN PLT VOLUME 7.9 fl (7.5-11.1); MONO % 7.4 % (3.8-10.2); NEUT % 58.5 % (42.8-82.8); PLATELET COUNT 258 10^3/uL (134-434); RBC 4.07 M/mm3 (3.60-5.2); RDW 15.7 % (11.6-15.6)
[2022-08-01 13:04] LABS: INR 0.97 (0.83-1.09); PROTHROMBIN TIME (PATIENT) 11.1 SEC (9.7-13.0)
[2022-08-01 13:07] LABS: ACTIVATED PTT 31.4 SECONDS (25.2-36.5)
[2022-08-01 13:20] LABS: CHLORIDE 104 mmol/L (98-107); SODIUM 138 mmol/L (136-145)
[2022-08-01 13:22] LABS: CALCIUM 8.9 mg/dL (8.5-10.1)
[2022-08-01 13:24] LABS: ALBUMIN 2.9 g/dl (3.4-5.0); ANION GAP 9 MMOL/L (8-16); BLOOD UREA NITROGEN 5.1 mg/dL (7-18); CO2 25 mmol/L (21-32); GLUCOSE,RANDOM 74 mg/dL (74-106)
[2022-08-01 13:26] LABS: CREATININE 0.5 mg/dL (0.55-1.3); SGOT/AST 8 U/L (15-37); SGPT/ALT 15 U/L (13-61)
[2022-08-01 13:28] LABS: BILIRUBIN,TOTAL 0.5 mg/dL (0.2-1); TOT PROT 7.1 g/dl (6.4-8.2)
[2022-08-01 13:29] LABS: ALK PHOS 48 U/L (45-117)
[2022-08-01 13:36] LABS: N-TERMINAL BNP 80.1 pg/ml (5-125)
[2022-08-01 15:00] LABS: URINE APPEARANCE CLEAR; URINE BILIRUBIN NEGATIVE (NEGATIVE); URINE COLOR YELLOW; URINE GLUCOSE (UA) NEGATIVE (NEGATIVE); URINE KETONE NEGATIVE (NEGATIVE); URINE LEUK ESTERASE NEGATIVE (NEGATIVE); URINE NITRITE NEGATIVE (NEGATIVE); URINE PROTEIN NEGATIVE (NEGATIVE); URINE UROBILINOGEN 0.2 mg/dL (0.2-1.0)
[2022-08-01] MEDS ORDERED: ALBUTEROL SO4 2.5/IPRATROPIUM 0.5 INH SOL 3 ML VIAL.NEB. NEB PRN (17:33)
[2022-08-01] MEDS ORDERED: ALBUTEROL SO4 0.083% IH SOL 2.5 MG/3 ML VIAL.NEB. NEB PRN (17:33)
[2022-08-01] MEDS ORDERED: ACETAMINOPHEN 650 MG/20.3 ML ORAL SOLUTION (CUPS) PO PRN (18:54)
[2022-08-01] MEDS: methylPREDNISolone NA SUCC 40 MG/1 ML VIAL IVPUSH SCH (21:41)
[2022-08-01] MEDS: DEXTROSE 5%-NORMAL SALINE 1,000 ML IV SCH (21:41)
[2022-08-02] MEDS: ALBUTEROL SO4 2.5/IPRATROPIUM 0.5 INH SOL 3 ML VIAL.NEB. NEB SCH ×4 (07:40→20:35)
[2022-08-02] MEDS ORDERED: ALBUTEROL SO4 0.083% IH SOL 2.5 MG/3 ML VIAL.NEB. NEB PRN (07:55)
[2022-08-02 08:54] LABS: BASO % 0.1 % (0-2.0); EOS % 0.1 % (0-4.5); HEMATOCRIT 31.8 % (32.4-45.2); HEMOGLOBIN 10.1 GM/dL (10.7-15.3); LYMPH % 9.6 % (8-40); MCH 27.4 pg (25.7-33.7); MCHC 31.7 g/dl (32.0-36.0); MEAN CELL VOLUME 86.3 fl (80-96); MEAN PLT VOLUME 8.8 fl (7.5-11.1); MONO % 6.1 % (3.8-10.2); NEUT % 84.1 % (42.8-82.8); PLATELET COUNT 295 10^3/uL (134-434); RBC 3.69 M/mm3 (3.60-5.2); RDW 15.8 % (11.6-15.6); WHITE BLOOD COUNT 18.3 K/mm3 (4.0-10.0)
[2022-08-02 08:57] LABS: INR 0.97 (0.83-1.09); PROTHROMBIN TIME (PATIENT) 11.1 SEC (9.7-13.0)
[2022-08-02 08:59] LABS: ACTIVATED PTT 23.9 SECONDS (25.2-36.5)
[2022-08-02 09:09] LABS: CHLORIDE 107 mmol/L (98-107); SODIUM 138 mmol/L (136-145)
[2022-08-02 09:15] LABS: CALCIUM 8.7 mg/dL (8.5-10.1)
[2022-08-02 09:16] LABS: ALBUMIN 2.5 g/dl (3.4-5.0); ANION GAP 10 MMOL/L (8-16); BLOOD UREA NITROGEN 10.6 mg/dL (7-18); CO2 22 mmol/L (21-32); GLUCOSE,RANDOM 136 mg/dL (74-106)
[2022-08-02 09:17] LABS: PHOSPHOROUS 3.4 mg/dL (2.5-4.9); SGPT/ALT 12 U/L (13-61)
[2022-08-02 09:19] LABS: BILIRUBIN,TOTAL 0.3 mg/dL (0.2-1); CHOLESTEROL 186 mg/dL (50-200); CREATININE 0.6 mg/dL (0.55-1.3); SGOT/AST 7 U/L (15-37)
[2022-08-02 09:20] LABS: ALK PHOS 41 U/L (45-117)
[2022-08-02] MEDS: methylPREDNISolone NA SUCC 40 MG/1 ML VIAL IVPUSH SCH (09:24)
[2022-08-02] MEDS: guaiFENesin 600 MG TABLET.ER (FP) PO SCH ×2 (15:20→22:04)
[2022-08-02] MEDS: DEXTROSE 5%-NORMAL SALINE 1,000 ML IV SCH (18:26)
[2022-08-03] MEDS ORDERED: SIMETHICONE 80 MG TAB.CHEW (FP) PO PRN (00:23)
[2022-08-03] MEDS ORDERED: SODIUM CHLORIDE NASAL SPRAY 44 ML BOTTLE NS PRN (00:23)
[2022-08-03] MEDS: ALBUTEROL SO4 2.5/IPRATROPIUM 0.5 INH SOL 3 ML VIAL.NEB. NEB SCH ×2 (07:32→11:00)
[2022-08-03] MEDS: guaiFENesin 600 MG TABLET.ER (FP) PO SCH (09:40)
[2022-08-03] MEDS ORDERED: predniSONE 20 MG TABLET (UD) PO ONE (11:05)
[2022-08-03 11:16] VITALS: BP 111/51; PULSE 89; RESP 24; TEMP 98.2
== END 2022-08-03 14:33 | disposition home or self-care (01) | DRG 955 ==
LOC: JER 11:15 → JERBED 15:35 → UNDOADMOB 15:35 → OBSVTOIN 15:35 → INTOOBSV 15:35 → JERBED 17:26 → MERGE 17:26 → OBSVTOIN 17:26 → J7W 20:21 → J4W 20:53
PROVIDERS: ADMIT Internal Medicine; ATTEND Internal Medicine
DX: O99.519 Diseases of the respiratory system complicating pregnancy, unspecified trimester (principal); Z3A.17 17 weeks gestation of pregnancy; J45.901 Unspecified asthma with (acute) exacerbation; G47.33 Obstructive sleep apnea (adult) (pediatric)
CPT/HCPCS: 0241U-QW; 36415; 71045-TC-FY; 80053; 81003; 82465; 83036; 83880; 84100; 84439; 84443; 84484; 85025; 85610; 85730; 87086; 93005; 93010; 94640; 99285-25; J1100

== ENCOUNTER 2022-08-17 13:25 | Emergency (ER) | payer OTHER ==
[2022-08-17 13:31] VITALS: BMI 40.1
[2022-08-17] MEDS ORDERED: methylPREDNISolone NA SUCC 125 MG/2 ML VIAL IVPUSH ONE (15:07)
[2022-08-17] MEDS ORDERED: MAGNESIUM SULF 50% (8.12 MEQ/2 ML-1 GM VIAL) IVPB ONE (15:10)
[2022-08-17] MEDS ORDERED: ACETAMINOPHEN 1000 MG/100 ML BAG IVPB ONE (15:10)
[2022-08-17] MEDS ORDERED: ALBUTEROL SO4 2.5/IPRATROPIUM 0.5 INH SOL 3 ML VIAL.NEB. NEB ONE (15:30)
[2022-08-17] MEDS: ALBUTEROL SO4 2.5/IPRATROPIUM 0.5 INH SOL 3 ML VIAL.NEB. NEB SCH ×3 (15:30→16:10)
[2022-08-17] MEDS ORDERED: SODIUM CHLORIDE 0.9% 500 ML INFUS.BAG IV ONE (15:30)
[2022-08-17] MEDS ORDERED: ACETAMINOPHEN INJECTION 100 ML IVPB ONE (15:31)
[2022-08-17] MEDS ORDERED: methylPREDNISolone NA SUCC 125 MG/2 ML VIAL ONE (15:32)
[2022-08-17] MEDS ORDERED: MAGNESIUM SULFATE IN WATER 2 GM/50 ML IVPB IVPB ONE (15:32)
[2022-08-17 16:21] LABS: PH,URINE 7.5 (5.0-8.0); URINE APPEARANCE CLEAR; URINE BILIRUBIN NEGATIVE (NEGATIVE); URINE COLOR YELLOW; URINE GLUCOSE (UA) NEGATIVE (NEGATIVE); URINE KETONE NEGATIVE (NEGATIVE); URINE LEUK ESTERASE NEGATIVE (NEGATIVE); URINE NITRITE NEGATIVE (NEGATIVE); URINE PROTEIN NEGATIVE (NEGATIVE); URINE UROBILINOGEN 0.2 mg/dL (0.2-1.0)
[2022-08-17 16:25] LABS: BASO % 0.4 % (0-2.0); EOS % 4.4 % (0-4.5); HEMOGLOBIN 11.3 GM/dL (10.7-15.3); LYMPH % 20.2 % (8-40); MCH 28.2 pg (25.7-33.7); MCHC 33.1 g/dl (32.0-36.0); MEAN CELL VOLUME 85.3 fl (80-96); MEAN PLT VOLUME 8.1 fl (7.5-11.1); MONO % 8.6 % (3.8-10.2); NEUT % 66.4 % (42.8-82.8); PLATELET COUNT 260 10^3/uL (134-434); RBC 3.99 M/mm3 (3.60-5.2); RDW 15.3 % (11.6-15.6); WHITE BLOOD COUNT 11.3 K/mm3 (4.0-10.0)
[2022-08-17 16:48] LABS: CALCIUM 8.8 mg/dL (8.5-10.1)
[2022-08-17 16:49] LABS: ALBUMIN 2.7 g/dl (3.4-5.0); BLOOD UREA NITROGEN 7.6 mg/dL (7-18)
[2022-08-17 16:52] LABS: CREATININE 0.6 mg/dL (0.55-1.3)
[2022-08-17 16:53] LABS: BILIRUBIN,TOTAL 0.3 mg/dL (0.2-1); TOT PROT 6.6 g/dl (6.4-8.2)
[2022-08-17 17:50] VITALS: BP 113/57; PULSE 100; RESP 20; TEMP 98.4
== END 2022-08-17 18:45 | disposition home or self-care (01) ==
LOC: JER 13:25
PROC: 3E0F7GC Introduction of Other Therapeutic Substance into Respiratory Tract, Via Natural or Artificial Opening (ICD-10-PCS; principal; 2022-08-17)
PROC: 3E033NZ Introduction of Analgesics, Hypnotics, Sedatives into Peripheral Vein, Percutaneous Approach (ICD-10-PCS; 2022-08-17)
PROC: 3E033GC Introduction of Other Therapeutic Substance into Peripheral Vein, Percutaneous Approach (ICD-10-PCS; 2022-08-17)
PROC: 3E033GC Introduction of Other Therapeutic Substance into Peripheral Vein, Percutaneous Approach (ICD-10-PCS; 2022-08-17)
DX: J45.901 Unspecified asthma with (acute) exacerbation (principal)
CPT/HCPCS: 0241U-QW; 36415; 71046-TC-FY; 80053; 81003; 83735; 85025; 87086; 99284-25

== ENCOUNTER 2022-11-05 15:47 | Emergency (ER) | payer OTHER ==
[2022-11-05 16:01] VITALS: BMI 44.1
[2022-11-05] MEDS ORDERED: LACTATED RINGERS SOLUTION 1000 ML INFUS.BAG IV ONE (17:21)
[2022-11-05] MEDS ORDERED: MAGNESIUM SULF 50% (8.12 MEQ/2 ML-1 GM VIAL) IVPB ONE (17:25)
[2022-11-05] MEDS ORDERED: ALBUTEROL SO4 2.5/IPRATROPIUM 0.5 INH SOL 3 ML VIAL.NEB. NEB ONE ×3 (17:26→20:30)
[2022-11-05] MEDS: ALBUTEROL SO4 2.5/IPRATROPIUM 0.5 INH SOL 3 ML VIAL.NEB. NEB SCH ×2 (17:29→17:45)
[2022-11-05] MEDS ORDERED: MAGNESIUM SULFATE IN WATER 2 GM/50 ML IVPB IVPB ONE (17:29)
[2022-11-05 17:46] VITALS: TEMP 97.7
[2022-11-05] MEDS ORDERED: ALBUTEROL SO4 0.083% IH SOL 2.5 MG/3 ML VIAL.NEB. NEB ONE (18:57)
[2022-11-05] MEDS: ALBUTEROL SO4 0.083% IH SOL 2.5 MG/3 ML VIAL.NEB. NEB SCH ×2 (19:00→19:15)
[2022-11-05 19:37] VITALS: BP 138/65; RESP 18
[2022-11-05] MEDS ORDERED: ALBUTEROL SO4 HFA INHALER IH ONE ×2 (21:47→22:02)
[2022-11-05 22:09] VITALS: PULSE 110
== END 2022-11-05 22:10 | disposition home or self-care (01) ==
LOC: JER 15:47
PROC: 3E033GC Introduction of Other Therapeutic Substance into Peripheral Vein, Percutaneous Approach (ICD-10-PCS; principal; 2022-11-05)
PROC: 3E0F7GC Introduction of Other Therapeutic Substance into Respiratory Tract, Via Natural or Artificial Opening (ICD-10-PCS; 2022-11-05)
DX: O99.513 Diseases of the respiratory system complicating pregnancy, third trimester (principal); J45.21 Mild intermittent asthma with (acute) exacerbation; Z3A.30 30 weeks gestation of pregnancy
CPT/HCPCS: 93005; 93010; 99285-25

== ENCOUNTER 2023-01-05 06:08 | Inpatient (IN) | payer OTHER ==
[2023-01-05] MEDS ORDERED: ELECTROLYTE-148 SOLN 500 ML IV ONE (06:35)
[2023-01-05] MEDS ORDERED: CITRIC ACID/SODIUM CITRATE 30 ML UNIT-DOSE CUP PO ONE (06:35)
[2023-01-05 06:50] VITALS: BMI 47.0
[2023-01-05] MEDS ORDERED: ELECTROLYTE-148 SOLN 1,000 ML IV SCH ×2 (07:00→08:30)
[2023-01-05] MEDS ORDERED: ALBUTEROL SO4 0.083% IH SOL 2.5 MG/3 ML VIAL.NEB. NEB ONE ×2 (07:15→07:19)
[2023-01-05 10:05] LABS: CORD BASE EXCESS -2.6 mmol/L (0-2); CORD HCO3 25.6 mmHg (20-29); CORD PCO2 60.8 mmHg (30-78); CORD pH 7.242 (7.14-7.44)
[2023-01-05 10:11] LABS: CORD BASE EXCESS -1.1 mmol/L (0-2); CORD HCO3 26.5 mmHg (20-29); CORD PCO2 56.5 mmHg (30-78); CORD pH 7.289 (7.14-7.44)
[2023-01-05] MEDS ORDERED: IBUPROFEN 800 MG/8 ML IJ IVPB PRN (10:17)
[2023-01-05] MEDS ORDERED: METHYLERGONOVINE MALEATE 0.2 MG/1 ML AMP IM PRN (10:17)
[2023-01-05] MEDS ORDERED: ACETAMINOPHEN 325 MG TABLET (FP) PO PRN (10:17)
[2023-01-05] MEDS: OXYTOCIN 20 UNITS in 0.9% NS 20 UNIT/1,000 ML INFUS.BAG IV SCH ×2 (10:30→21:08)
[2023-01-05] MEDS ORDERED: ONDANSETRON 4 MG/2 ML VIAL IVPUSH PRN (10:31)
[2023-01-05] MEDS: ENOXAPARIN NA (PORCINE) 40 MG/0.4 ML DISP.SYRIN SQ SCH (11:03)
[2023-01-05] MEDS ORDERED: ONDANSETRON 4 MG/2 ML VIAL ONE (11:07)
[2023-01-05] MEDS ORDERED: DEXTROSE 5%-WATER 100 ML IVPB ONE (17:29)
[2023-01-05] MEDS ORDERED: CEFAZOLIN 3 GM in DEXTROSE 5%-WATER 100 ML IVPB SCH (18:00)
[2023-01-05] MEDS: CEFAZOLIN 3 GM in DEXTROSE 5%-WATER 100 ML IVPB SCH (18:21)
[2023-01-05] MEDS ORDERED: oxyCODONE HCL 5 MG TABLET PO PRN (22:17)
[2023-01-06 00:40] VITALS: RESP 18
[2023-01-06] MEDS: CEFAZOLIN 3 GM in DEXTROSE 5%-WATER 100 ML IVPB SCH ×2 (01:40→09:26)
[2023-01-06] MEDS: SIMETHICONE 80 MG TAB.CHEW (FP) PO PRN ×4 (01:57→20:57)
[2023-01-06] MEDS: IBUPROFEN 600 MG TABLET (FP) PO PRN ×4 (01:57→20:56)
[2023-01-06] MEDS: ENOXAPARIN NA (PORCINE) 40 MG/0.4 ML DISP.SYRIN SQ SCH (09:26)
[2023-01-06 09:40] LABS: BASO % 0.5 % (0-2.0); EOS % 3.3 % (0-4.5); HEMATOCRIT 33.5 % (32.4-45.2); HEMOGLOBIN 11.1 GM/dL (10.7-15.3); LYMPH % 19.8 % (8-40); MCH 28.4 pg (25.7-33.7); MCHC 33.2 g/dl (32.0-36.0); MEAN CELL VOLUME 85.5 fl (80-96); MEAN PLT VOLUME 8.2 fl (7.5-11.1); MONO % 9.9 % (3.8-10.2); NEUT % 66.5 % (42.8-82.8); PLATELET COUNT 235 10^3/uL (134-434); RBC 3.92 M/mm3 (3.60-5.2); RDW 15.1 % (11.6-15.6); WHITE BLOOD COUNT 11.5 K/mm3 (4.0-10.0)
[2023-01-06] MEDS ORDERED: ALBUTEROL SO4 0.042% IH SOL 1.25 MG/3 ML VIAL.NEB NEB ONE (10:00)
[2023-01-06] MEDS ORDERED: BISACODYL 10 MG SUPP.RECT RC PRN (10:17)
[2023-01-06] MEDS: oxyCODONE HCL 5 MG TABLET PO PRN ×2 (12:12→18:26)
[2023-01-06] MEDS: diphenhydrAMINE HCL 25 MG CAPSULE (FP) PO PRN (21:39)
[2023-01-07] MEDS: SIMETHICONE 80 MG TAB.CHEW (FP) PO PRN ×3 (02:48→22:51)
[2023-01-07] MEDS: oxyCODONE HCL 5 MG TABLET PO PRN (02:49)
[2023-01-07] MEDS: IBUPROFEN 600 MG TABLET (FP) PO PRN (07:21)
[2023-01-07] MEDS: ENOXAPARIN NA (PORCINE) 40 MG/0.4 ML DISP.SYRIN SQ SCH (09:26)
[2023-01-07] MEDS: diphenhydrAMINE HCL 25 MG CAPSULE (FP) PO PRN (09:31)
[2023-01-07] MEDS: IBUPROFEN 600 MG TABLET (FP) PO SCH ×2 (11:12→17:21)
[2023-01-07] MEDS: ALBUTEROL SO4 0.042% IH SOL 1.25 MG/3 ML VIAL.NEB NEB PRN (15:00)
[2023-01-08] MEDS: IBUPROFEN 600 MG TABLET (FP) PO SCH ×4 (00:03→18:05)
[2023-01-08] MEDS: SIMETHICONE 80 MG TAB.CHEW (FP) PO PRN ×4 (05:53→21:35)
[2023-01-08] MEDS: ALBUTEROL SO4 0.042% IH SOL 1.25 MG/3 ML VIAL.NEB NEB PRN ×2 (05:54→14:50)
[2023-01-08 08:02] LABS: BASO % 0.7 % (0-2.0); EOS % 4.4 % (0-4.5); HEMOGLOBIN 9.6 GM/dL (10.7-15.3); LYMPH % 28.4 % (8-40); MCH 28.7 pg (25.7-33.7); MCHC 33.2 g/dl (32.0-36.0); MEAN CELL VOLUME 86.3 fl (80-96); MEAN PLT VOLUME 8.1 fl (7.5-11.1); MONO % 9.6 % (3.8-10.2); NEUT % 56.9 % (42.8-82.8); PLATELET COUNT 214 10^3/uL (134-434); RBC 3.36 M/mm3 (3.60-5.2); RDW 15.3 % (11.6-15.6); WHITE BLOOD COUNT 8.6 K/mm3 (4.0-10.0)
[2023-01-08] MEDS: ENOXAPARIN NA (PORCINE) 40 MG/0.4 ML DISP.SYRIN SQ SCH (09:58)
[2023-01-08] MEDS: oxyCODONE HCL 5 MG TABLET PO PRN ×2 (13:44→21:35)
[2023-01-08] MEDS ORDERED: ALBUTEROL SO4 2.5/IPRATROPIUM 0.5 INH SOL 3 ML VIAL.NEB. NEB PRN (15:33)
[2023-01-08] MEDS: ALBUTEROL SO4 2.5/IPRATROPIUM 0.5 INH SOL 3 ML VIAL.NEB. NEB SCH ×3 (16:13→23:02)
[2023-01-08] MEDS: predniSONE 20 MG TABLET (UD) PO SCH (16:13)
[2023-01-08] MEDS: OXYTOCIN 20 UNITS in 0.9% NS 20 UNIT/1,000 ML INFUS.BAG IV SCH (19:26)
[2023-01-09] MEDS: IBUPROFEN 600 MG TABLET (FP) PO SCH ×4 (00:10→12:21)
[2023-01-09] MEDS: ALBUTEROL SO4 2.5/IPRATROPIUM 0.5 INH SOL 3 ML VIAL.NEB. NEB SCH ×3 (03:17→11:25)
[2023-01-09 08:47] VITALS: BP 131/75; PULSE 98; TEMP 98
[2023-01-09] MEDS: predniSONE 20 MG TABLET (UD) PO SCH (09:25)
[2023-01-09] MEDS: ENOXAPARIN NA (PORCINE) 40 MG/0.4 ML DISP.SYRIN SQ SCH (09:26)
== END 2023-01-09 14:09 | disposition home or self-care (01) | DRG 787 ==
LOC: JLDR 06:08 → J3W 12:00
PROVIDERS: ADMIT Obstetrics & Gynecology; ATTEND Obstetrics & Gynecology
PROC: 10D00Z1 Extraction of Products of Conception, Low, Open Approach (ICD-10-PCS; principal; 2023-01-05)
PROC: 5A09457 Assistance with Respiratory Ventilation, 24-96 Consecutive Hours, Continuous Positive Airway Pressure (ICD-10-PCS; 2023-01-08)
DX: O34.219 Maternal care for unspecified type scar from previous cesarean delivery (principal); J45.901 Unspecified asthma with (acute) exacerbation; O99.52 Diseases of the respiratory system complicating childbirth; G47.33 Obstructive sleep apnea (adult) (pediatric); O69.1XX0 Labor and delivery complicated by cord around neck, with compression, not applicable or unspecified; O99.214 Obesity complicating childbirth; E66.01 Morbid (severe) obesity due to excess calories; Z3A.39 39 weeks gestation of pregnancy; Z37.0 Single live birth
CPT/HCPCS: 36415; 36600; 71045-TC-FY; 82803; 85025; 88307-TC; 94010; 94640; 94660

== ENCOUNTER 2024-03-21 23:38 | Observation (INO) | payer OTHER ==
[2024-03-22] MEDS ORDERED: ALBUTEROL SO4 2.5/IPRATROPIUM 0.5 INH SOL 3 ML VIAL.NEB. NEB SCH (00:15)
[2024-03-22] MEDS ORDERED: ALBUTEROL SO4 2.5/IPRATROPIUM 0.5 INH SOL 3 ML VIAL.NEB. NEB ONE ×3 (00:17→14:20)
[2024-03-22] MEDS ORDERED: methylPREDNISolone NA SUCC 125 MG/2 ML VIAL ONE (00:17)
[2024-03-22] MEDS: ALBUTEROL SO4 2.5/IPRATROPIUM 0.5 INH SOL 3 ML VIAL.NEB. NEB ONE (00:28)
[2024-03-22] MEDS: methylPREDNISolone NA SUCC 125 MG/2 ML VIAL IVPB ONE (00:28)
[2024-03-22 00:43] LABS: VENOUS BASE EXCESS -1.9 mmol/L (-2-2); VENOUS PCO2 45.4 mmHg (38-52); VENOUS PH 7.341 (7.310-7.410)
[2024-03-22 00:44] LABS: BASO % 0.5 % (0-2.0); EOS % 4.1 % (0-4.5); HEMATOCRIT 32.2 % (32.4-45.2); HEMOGLOBIN 10.5 GM/dL (10.7-15.3); LYMPH % 39.4 % (8-40); MCH 26.3 pg (25.7-33.7); MCHC 32.5 g/dl (32.0-36.0); MEAN PLT VOLUME 8.1 fl (7.5-11.1); MONO % 8.1 % (3.8-10.2); NEUT % 47.9 % (42.8-82.8); PLATELET COUNT 309 10^3/uL (134-434); RBC 3.98 M/mm3 (3.60-5.2); RDW 16.2 % (11.6-15.6); WHITE BLOOD COUNT 10.6 K/mm3 (4.0-10.0)
[2024-03-22] MEDS ORDERED: ALBUTEROL SO4 0.083% IH SOL 2.5 MG/3 ML VIAL.NEB. NEB ONE ×2 (00:44→04:28)
[2024-03-22] MEDS: ALBUTEROL SO4 0.083% IH SOL 2.5 MG/3 ML VIAL.NEB. NEB ONE ×2 (00:46→04:55)
[2024-03-22 01:03] LABS: POTASSIUM 3.1 mmol/L (3.5-5.1)
[2024-03-22 01:05] LABS: CALCIUM 8.6 mg/dL (8.5-10.1)
[2024-03-22 01:06] LABS: ALBUMIN 3.4 g/dl (3.4-5.0); BLOOD UREA NITROGEN 10.4 mg/dL (7-18)
[2024-03-22 01:09] LABS: CREATININE 0.7 mg/dL (0.55-1.3)
[2024-03-22 01:10] LABS: BILIRUBIN,TOTAL 0.6 mg/dL (0.2-1); TOT PROT 6.9 g/dl (6.4-8.2)
[2024-03-22] MEDS ORDERED: MAGNESIUM SULFATE IN WATER 2 GM/50 ML IVPB IVPB ONE (01:43)
[2024-03-22] MEDS ORDERED: POTASSIUM CHLORIDE ORAL LIQUID 20 MEQ/15 ML ONE (01:47)
[2024-03-22] MEDS: POTASSIUM CHLORIDE ORAL LIQUID 20 MEQ/15 ML PO ONE (01:50)
[2024-03-22] MEDS ORDERED: ALBUTEROL SO4 HFA INHALER IH PRN (05:45)
[2024-03-22] MEDS ORDERED: PANTOPRAZOLE 40 MG TABLET PO ONE (07:27)
[2024-03-22] MEDS: PANTOPRAZOLE 40 MG TABLET PO SCH (07:37)
[2024-03-22 07:40] LABS: HEMATOCRIT 34.6 % (32.4-45.2); HEMOGLOBIN 10.8 GM/dL (10.7-15.3); MCH 25.5 pg (25.7-33.7); MCHC 31.3 g/dl (32.0-36.0); MEAN CELL VOLUME 81.6 fl (80-96); MEAN PLT VOLUME 8.4 fl (7.5-11.1); PLATELET COUNT 335 10^3/uL (134-434); RBC 4.24 M/mm3 (3.60-5.2); RDW 16.4 % (11.6-15.6)
[2024-03-22 07:56] LABS: POTASSIUM 3.6 mmol/L (3.5-5.1)
[2024-03-22 07:58] LABS: ALBUMIN 3.6 g/dl (3.4-5.0); BLOOD UREA NITROGEN 9.5 mg/dL (7-18); CALCIUM 8.5 mg/dL (8.5-10.1); MAGNESIUM 2.4 mg/dL (1.8-2.4)
[2024-03-22 08:01] LABS: CREATININE 0.7 mg/dL (0.55-1.3); PHOSPHOROUS 1.7 mg/dL (2.5-4.9)
[2024-03-22 08:03] LABS: BILIRUBIN,TOTAL 0.5 mg/dL (0.2-1); TOT PROT 7.4 g/dl (6.4-8.2)
[2024-03-22] MEDS: ALBUTEROL SO4 2.5/IPRATROPIUM 0.5 INH SOL 3 ML VIAL.NEB. NEB SCH (08:35)
[2024-03-22] MEDS: SODIUM CHLORIDE 1,000 ML IV SCH (08:48)
[2024-03-22] MEDS ORDERED: POTASSIUM CHLORIDE TABS 20 MEQ TABLET.ER (FP) PO ONE (09:40)
[2024-03-22] MEDS ORDERED: methylPREDNISolone NA SUCC 40 MG/1 ML VIAL ONE (09:41)
[2024-03-22] MEDS: POTASSIUM CHLORIDE TABS 20 MEQ TABLET.ER (FP) PO SCH (10:00)
[2024-03-22] MEDS: methylPREDNISolone NA SUCC 40 MG/1 ML VIAL IVPUSH SCH (10:11)
[2024-03-22] MEDS: BUDESONIDE/FORMETEROL FUMARATE 160/4.5 mcg INHALER IH SCH (10:12)
[2024-03-22] MEDS: ENOXAPARIN NA (PORCINE) 40 MG/0.4 ML DISP.SYRIN SQ SCH (10:12)
[2024-03-22] MEDS ORDERED: ENOXAPARIN NA (PORCINE) 40 MG/0.4 ML DISP.SYRIN SQ ONE (10:17)
[2024-03-22] MEDS: ACETAMINOPHEN 325 MG TABLET (FP) PO PRN (11:32)
[2024-03-22] MEDS ORDERED: NAPH,MB-DB/K PH,MBDB POWDER PACKET ONE ×2 (11:41→21:54)
[2024-03-22] MEDS ORDERED: ACETAMINOPHEN 325 MG TABLET (FP) ONE ×2 (11:41→23:46)
[2024-03-22] MEDS: NAPH,MB-DB/K PH,MBDB POWDER PACKET PO SCH (11:51)
[2024-03-22 19:16] LABS: PH,URINE 7.5 (5.0-8.0); URINE APPEARANCE CLEAR; URINE BILIRUBIN NEGATIVE (NEGATIVE); URINE COLOR YELLOW; URINE GLUCOSE (UA) NEGATIVE (NEGATIVE); URINE KETONE NEGATIVE (NEGATIVE); URINE LEUK ESTERASE NEGATIVE (NEGATIVE); URINE NITRITE NEGATIVE (NEGATIVE); URINE PROTEIN NEGATIVE (NEGATIVE); URINE UROBILINOGEN 0.2 mg/dL (0.2-1.0)
[2024-03-22 19:49] LABS: PHENCYCLIDINE,URINE NEGATIVE (NEGATIVE); URINE BARBITURATES NEGATIVE (NEGATIVE)
[2024-03-22 19:50] LABS: METHADONE, UR NEGATIVE (NEGATIVE); URINE BENZODIAZEPINES NEGATIVE (NEGATIVE)
[2024-03-22 19:56] LABS: OPIATES, URI NEGATIVE (NEGATIVE)
[2024-03-22 19:57] LABS: COCAINE, UR NEGATIVE (NEGATIVE); URINE AMPHETAMINES NEGATIVE (NEGATIVE)
[2024-03-22] MEDS ORDERED: MONTELUKAST NA 10 MG TABLET ONE (21:54)
[2024-03-22] MEDS: MONTELUKAST NA 5 MG TAB.CHEW PO SCH (22:14)
[2024-03-23] MEDS: MELATONIN 5 MG TABLETS PO ONE (03:46)
[2024-03-23] MEDS ORDERED: MELATONIN 5 MG TABLETS ONE (03:47)
[2024-03-23 04:15] VITALS: RESP 18
[2024-03-23] MEDS ORDERED: ALBUTEROL SO4 HFA INHALER IH PRN (04:50)
[2024-03-23] MEDS: MELATONIN 5 MG TABLETS PO PRN (04:57)
[2024-03-23] MEDS: SODIUM CHLORIDE 1,000 ML IV SCH (05:02)
[2024-03-23 05:20] VITALS: BMI 35.4
[2024-03-23] MEDS: PANTOPRAZOLE 40 MG TABLET PO SCH (06:41)
[2024-03-23] MEDS: ALBUTEROL SO4 2.5/IPRATROPIUM 0.5 INH SOL 3 ML VIAL.NEB. NEB SCH (07:39)
[2024-03-23 08:28] LABS: POTASSIUM 4.3 mmol/L (3.5-5.1)
[2024-03-23 08:37] LABS: CALCIUM 9.3 mg/dL (8.5-10.1)
[2024-03-23 08:38] LABS: BLOOD UREA NITROGEN 9.7 mg/dL (7-18)
[2024-03-23 08:41] LABS: CREATININE 0.6 mg/dL (0.55-1.3)
[2024-03-23 08:45] LABS: N-TERMINAL BNP 204.2 pg/ml (5-125)
[2024-03-23 10:28] VITALS: BP 126/68; PULSE 74; TEMP 97.7
[2024-03-23] MEDS: POTASSIUM CHLORIDE TABS 20 MEQ TABLET.ER (FP) PO SCH (10:56)
[2024-03-23] MEDS: ENOXAPARIN NA (PORCINE) 40 MG/0.4 ML DISP.SYRIN SQ SCH (10:57)
[2024-03-23] MEDS: methylPREDNISolone NA SUCC 40 MG/1 ML VIAL IVPUSH SCH (12:22)
[2024-03-23] MEDS: BUDESONIDE/FORMETEROL FUMARATE 160/4.5 mcg INHALER IH SCH (12:23)
[2024-03-23] MEDS ORDERED: MONTELUKAST NA 10 MG TABLET PO SCH (22:00)
== END 2024-03-23 13:05 | disposition home or self-care (01) ==
LOC: JER 23:38 → JERBED 03-22 04:09 → J7W 03-23 04:38
PROVIDERS: ADMIT Internal Medicine; ATTEND Internal Medicine
PROC: 3E0F7GC Introduction of Other Therapeutic Substance into Respiratory Tract, Via Natural or Artificial Opening (ICD-10-PCS; principal; 2024-03-22)
PROC: 3E023GC Introduction of Other Therapeutic Substance into Muscle, Percutaneous Approach (ICD-10-PCS; 2024-03-22)
PROC: 3E033GC Introduction of Other Therapeutic Substance into Peripheral Vein, Percutaneous Approach (ICD-10-PCS; 2024-03-22)
DX: J45.901 Unspecified asthma with (acute) exacerbation (principal); G47.33 Obstructive sleep apnea (adult) (pediatric); K21.9 Gastro-esophageal reflux disease without esophagitis; Z91.199 Patient's noncompliance with other medical treatment and regimen due to unspecified reason
CPT/HCPCS: 0241U-QW; 36415; 71045-TC-FY; 80048; 80053; 80307; 81003; 82728; 82803; 83540; 83550; 83735; 83880; 84100; 84484; 84703; 85025; 85027; 85379; 93005; 93010; 94150; 94640; 96361; 96365; 96372; 96375; 96376; 99285-25; G0378